=== PATIENT | male | born 1945 | race Hispanic/Latino ===

== ENCOUNTER 2022-08-19 11:58 | Observation (INO) | payer OTHER ==
--- OUTSIDE RECORDS SUMMARY | 2022-08-19 12:02 | XMS REPORT | Continuity of Care Document ---
:1945 Author Organization [facility] t Address [address] [place] [address] Care Team Providers Name Role Phone Micheal Moon MD Primary Care Physician Khurram Attending Clinician Unavailable DR ARCHIE SALAZAR Attending Clinician Unavailable LAURI PAGE Attending Clinician Unavailable Khurram Admitting Clinician Unavailable DR ARCHIE SALAZAR Admitting Clinician Unavailable Payers Payer Name Policy Type Policy Number Effective Date Expiration Date S idris [employer] (MEDICARE [id number] 2013 REPLACEMENT PPO) 00:00:00 MEDICARE B-[place]: [id number] 2008 [employer] 00:00:00 TRANSACT RX (MOVED [id number]) [id number] 2021 00:00:00 Problems Condition Condition Condition Status Onset Resolution Last Treating Co mments Source Name Details Category Date Date Treatment Clinician Date 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 8-25 Family 00:00: Practic 00 e Osteoarthr Osteoarthr Problem Active [facility] itis of itis of 8-25 Family joint of Joint of 00:00: Practi c right Right 00 e shoulder Shoulder region Region Tear of Tear of Problem Active [facility] right Right 8-25 Family rotator Rotator 00:00: Practic cuff Cuff 00 e Cellulitis Cellulitis Problem Active [facility] of upper of Upper 6-08 Family limb Limb 00:00: Practic 00 e Contact Contact Problem Active [facility] dermatitis Dermatitis 6-08 Fa richard 00:00: Practic 00 e Mixed Mixed Problem Active [facility] hyperchole Hyperchole 3-01 Fa richard sterolemia sterolemia 00:00: Pr actic and and 00 e hypertrigl Hypertrigl yceridemia yceridemia Hyperlipid Hyperlipid Problem Active [facility] emia emia 3-01 Family 00:00: Practic 00 e Hyperchole Hyperchole Problem Active 2015-04 [facility] sterolemia sterolemia 0-24 Fa richard 00:00: Practic 00 e Allergies, Adverse Reactions, Alerts Allergy Allergy Status Severity Reaction(s) Onset Inactive Treating Comm ents Source Name Type Date Date Clinician No Known DA Active [facility] Family History Family Member Diagnosis Comments Start Date Stop Date Source Natural father Alzheimer's disease [facility] Natural father Diabetes [facility] Natural mother Cancer [facility] Social History Social Habit Start Date Stop Date Quantity Comments Source Gender identity [facility] of Social 2018-12-06 2018-12-[address] function 00:00:00 00:00:00 Hospital Tobacco use and 2018-09-10 2018-09-10 Smokeless [facility] exposure 00:00:00 00:00:00 tobacco non-user Hospital Alcohol intake 2018-09-10 2018-09-10 Current drinker [facility] 00:00:00 00:00:00 of alcohol Hospital ([facility]) Alcohol Comment 2017-02-15 2017-02-15 2-[address] 00:00:00 00:00:00 WEEK PER PT Hospital Sex Assigned At [birth year] [facility] 00:00:00 00:00:00 Hospital Smoking Status Start Date Stop Date Source Unknown if ever smoked [facility] Never smoked tobacco [facility] Medications Ordered Filled Start Stop Current Ordering Indication Dosage Frequency Signature Comments Components Source Medication Medication Date Date Medication? Clinician (SIG) Name Name ROSUVASTATI Yes Take by [facility] N CALCIUM 5-[address] (ROSUVASTAT 09:51: Hospit a IN ORAL) 11 l ROSUVASTATI Yes Take by Met hodi N CALCIUM 5-[address] (ROSUVASTAT 09:51: Hospit a IN ORAL) 11 l meloxicam meloxicam meloxicam [facility] 15 mg 15 mg 15 mg Family tablet TAKE tablet TAKE tablet Practic 1 TABLET BY 1 TABLET BY TAKE 1 e MOUTH EVERY MOUTH EVERY TABLET BY DAY FOR 30 DAY FOR 30 MOUTH DAYS DAYS EVERY DAY FOR 30 DAYS mirtazapine mirtazapine No 1 Q1D [address] [facility] 15 mg 15 mg e 15 mg Family tablet Take tablet Take tablet Practic 1 tablet 1 tablet Take 1 e every day every day tablet by oral by oral every day route at route at by oral bedtime for bedtime for route at 30 days. 30 days. bedtime for 30 days. rosuvastati rosuvastati rosuvastat [facility] n 10 mg n 10 mg in 10 mg Famil y tablet TAKE tablet TAKE tablet Practic 1 TABLET BY 1 TABLET BY TAKE 1 e MOUTH EVERY MOUTH EVERY TABLET BY DAY DAY MOUTH EVERY DAY triamcinolo triamcinolo [facility] ne ne one Family acetonide acetonide acetonide Practic 0.5 % 0.5 % 0.5 % e topical topical topical cream APPLY cream APPLY cream THIN COAT THIN COAT APPLY THIN TO AFFECTED TO AFFECTED COAT TO AREA TWICE AREA TWICE AFFECTED A DAY A DAY AREA TWICE A DAY Keflex 500 Keflex 500 No 1capsul TID Keflex [address] [facility] mg capsule mg capsule e(s) mg capsule Family Take 1 Take 1 Take 1 Practic capsule 3 capsule 3 capsule 3 e times a day times a day times a by oral by oral day by route for 7 route for 7 oral route days. days. for 7 days. [facility] Family acetonide acetonide acetonide Practic 0.1 % 0.1 % 0.1 % e topical topical topical cream APPLY cream APPLY cream A THIN A THIN APPLY A LAYER TO LAYER TO THIN LAYER THE THE TO THE AFFECTED AFFECTED AFFECTED AREA(S) BY AREA(S) BY AREA(S) BY TOPICAL TOPICAL TOPICAL ROUTE 2 ROUTE 2 ROUTE 2 TIMES PER TIMES PER TIMES PER DAY X10 DAY X10 DAY X10 DAYS DAYS DAYS Bactrim DS Bactrim DS No 1 Q12H Bactrim DS [facility] 800 mg-160 800 mg-160 800 mg-160 Family mg tablet mg tablet mg tablet Practic Take 1 Take 1 Take 1 e tablet tablet tablet every 12 every 12 every 12 hours by hours by hours by oral route oral route oral route for 10 for 10 for 10 days. days. days. clotrimazol clotrimazol No clotrimazo [facility] e-betametha e-betametha le-betamet Family dieudonne Peraza hasone 1 Practic %-0.05 % %-0.05 % %-0.05 % e topical topical topical cream APPLY cream APPLY cream TO THE TO THE APPLY TO AFFECTED AFFECTED THE AND AND AFFECTED SURROUNDING SURROUNDING AND AREAS OF AREAS OF SURROUNDIN SKIN BY SKIN BY G AREAS OF TOPICAL TOPICAL SKIN BY ROUTE 2 ROUTE 2 TOPICAL TIMES PER TIMES PER ROUTE 2 DAY prn DAY prn TIMES PER rash rash DAY prn rash [facility]amcinolo [facility] acetonide acetonide acetonide Practic 0.1 % 0.1 % 0.1 % e topical topical topical cream APPLY cream APPLY cream A THIN A THIN APPLY A LAYER TO LAYER TO THIN LAYER THE THE TO THE AFFECTED AFFECTED AFFECTED AREA(S) BY AREA(S) BY AREA(S) BY TOPICAL TOPICAL TOPICAL ROUTE 2 ROUTE 2 ROUTE 2 TIMES PER TIMES PER TIMES PER DAY X10 DAY X10 DAY X10 DAYS DAYS DAYS Bactrim DS Bactrim DS No 1 Q12H Bactrim DS [facility] 800 mg-160 800 mg-160 800 mg-160 Family mg tablet mg tablet mg tablet Practic Take 1 Take 1 Take 1 e tablet tablet tablet every 12 every 12 every 12 hours by hours by hours by oral route oral route oral route for 10 for 10 for 10 days. days. days. clotrimazol [facility] e-betametha e-betametha le-betamet Family dieudonne bro 1 hasone 1 Practic %-0.05 % %-0.05 % %-0.05 % e topical topical topical cream APPLY cream APPLY cream TO THE TO THE APPLY TO AFFECTED AFFECTED THE AND AND AFFECTED SURROUNDING SURROUNDING AND AREAS OF AREAS OF SURROUNDIN SKIN BY SKIN BY G AREAS OF TOPICAL TOPICAL SKIN BY ROUTE 2 ROUTE 2 TOPICAL TIMES PER TIMES PER ROUTE 2 DAY prn DAY prn TIMES PER rash rash DAY prn rash triamcinolo triamcinolo No triamcinol [facility] one Family acetonide acetonide acetonide Practic 0.1 % 0.1 % 0.1 % e topical topical topical cream APPLY cream APPLY cream A THIN A THIN APPLY A LAYER TO LAYER TO THIN LAYER THE THE TO THE AFFECTED AFFECTED AFFECTED AREA(S) BY AREA(S) BY AREA(S) BY TOPICAL TOPICAL TOPICAL ROUTE 2 ROUTE 2 ROUTE 2 TIMES PER TIMES PER TIMES PER DAY X10 DAY X10 DAY X10 DAYS DAYS DAYS clotrimazol clotrimazol clotrimazo [facility] e-betametha e-betametha le-betamet Family sone 1 sone 1 hasone 1 Practic %-0.05 % %-0.05 % %-0.05 % e topical topical topical cream APPLY cream APPLY cream TO THE TO THE APPLY TO AFFECTED AFFECTED THE AND AND AFFECTED SURROUNDING SURROUNDING AND AREAS OF AREAS OF SURROUNDIN SKIN BY SKIN BY G AREAS OF TOPICAL TOPICAL SKIN BY ROUTE 2 ROUTE 2 TOPICAL TIMES PER TIMES PER ROUTE 2 DAY prn DAY prn TIMES PER rash rash DAY prn rash memantine memantine No memantine [facility] 10 mg 10 mg 10 mg Family tablet TAKE tablet TAKE tablet Practic 1 TABLET BY 1 TABLET BY TAKE 1 e MOUTH TWICE MOUTH TWICE TABLET BY A DAY A DAY MOUTH TWICE A DAY rosuvastati rosuvastati No rosuvastat [facility] n 10 mg n 10 mg in 10 mg Famil y tablet TAKE tablet TAKE tablet Practic 1 TABLET BY 1 TABLET BY TAKE 1 e MOUTH EVERY MOUTH EVERY TABLET BY DAY DAY MOUTH EVERY DAY triamcinolo triamcinolo No triamcinol [facility] ne ne one Family acetonide acetonide acetonide Practic 0.1 % 0.1 % 0.1 % e topical topical topical cream APPLY cream APPLY cream A THIN A THIN APPLY A LAYER TO LAYER TO THIN LAYER THE THE TO THE AFFECTED AFFECTED AFFECTED AREA(S) BY AREA(S) BY AREA(S) BY TOPICAL TOPICAL TOPICAL ROUTE 2 ROUTE 2 ROUTE 2 TIMES PER TIMES PER TIMES PER DAY X10 DAY X10 DAY X10 DAYS DAYS DAYS Immunizations Ordered Immunization Filled Immunization Date Status Commen ts Source Name Name COVID-19, mRNA, COVID-19, mRNA, 2022-02-22 Completed [facility] LNP-S, bivalent LNP-S, bivalent 00:00:00 Prac terrnece booster, PF, 30 booster, PF, 30 mcg/0.3 mL dose mcg/0.3 mL dose (Veebeam) (Veebeam) COVID-19, mRNA, COVID-19, mRNA, 2022-02-22 Completed [facility] LNP-S, bivalent LNP-S, bivalent 00:00:00 Prac terrence booster, PF, 30 booster, PF, 30 mcg/0.3 mL dose mcg/0.3 mL dose (Pfizer-BioNTech) (Zen99-BioNTech) COVID-19, mRNA, COVID-19, mRNA, 2022-02-22 Completed [facility] LNP-S, bivalent LNP-S, bivalent 00:00:[address]rence booster, PF, 30 booster, PF, 30 mcg/0.3 mL dose mcg/0.3 mL dose (Pfizer-BioNTech) (Pfizer-BioNTech) influenza, influenza, 2022-02-14 Completed [facility] unspecified unspecified 00:00:00 Practice formulation formulation influenza, influenza, 2022-02-14 Completed [facility] unspecified unspecified 00:00:00 Practice formulation formulation influenza, influenza, 2022-02-14 Completed [facility] unspecified unspecified 00:00:00 Practice formulation formulation influenza, influenza, 2022-02-14 Completed [facility] unspecified unspecified 00:00:00 Practice formulation formulation COVID-19, mRNA, COVID-19, mRNA, 2021-02-06 Completed [facility] LNP-S, PF, 30 mcg/0.3 LNP-S, PF, 30 mcg/0.3 00:00:00 Practice mL dose mL dose (Pfizer-BioNTech) (Zen99-BioNTech) COVID-19, mRNA, COVID-19, mRNA, 2021-02-06 Completed [facility] LNP-S, PF, 30 mcg/0.3 LNP-S, PF, 30 mcg/0.3 00:00:00 Practice mL dose mL dose (Pfizer-BioNTech) (Zen99-BioNTech) COVID-19, mRNA, COVID-19, mRNA, 2021-02-06 Completed [facility] LNP-S, PF, 30 mcg/0.3 LNP-S, PF, 30 mcg/0.3 00:00:00 Practice mL dose mL dose (Pfizer-BioNTech) (Zen99-BioNTech) COVID-19, mRNA, COVID-19, mRNA, 2021-02-06 Completed [facility] LNP-S, PF, 30 mcg/0.3 LNP-S, PF, 30 mcg/0.3 00:00:00 Practice mL dose mL dose (Pfizer-BioNTech) (Zen99-BioNTech) COVID-19, mRNA, COVID-19, mRNA, 2021-02-06 Completed [facility] LNP-S, PF, 30 mcg/0.3 LNP-S, PF, 30 mcg/0.3 00:00:00 Practice mL dose mL dose (Pfizer-BioNTech) (Zen99-BioNTech) Influenza vaccine, Influenza vaccine, 2021-01-[address] [facility] Family quadrivalent, quadrivalent, 00:00:00 Practice adjuvanted adjuvanted Influenza vaccine, Influenza vaccine, 2021-01-[address] [facility] Family quadrivalent, quadrivalent, 00:00:00 Practice adjuvanted adjuvanted Influenza vaccine, Influenza vaccine, 2021-01-[address] [facility] Family quadrivalent, quadrivalent, 00:00:00 Practice adjuvanted adjuvanted Influenza vaccine, Influenza vaccine, 2021-01-[address] [facility] Family quadrivalent, quadrivalent, 00:00:00 Practice adjuvanted adjuvanted Influenza vaccine, Influenza vaccine, 2021-01-[address] [facility] Family quadrivalent, quadrivalent, 00:00:00 Practice adjuvanted adjuvanted COVID-19, mRNA, COVID-19, mRNA, 2020-06-05 Completed [facility] LNP-S, PF, 30 mcg/0.3 LNP-S, PF, 30 mcg/0.3 00:00:00 Practice mL dose mL dose (Pfizer-BioNTech) (Zen99-BioNTech) COVID-19, mRNA, COVID-19, mRNA, 2020-06-05 Completed [facility] LNP-S, PF, 30 mcg/0.3 LNP-S, PF, 30 mcg/0.3 00:00:00 Practice mL dose mL dose (Pfizer-BioNTech) (Zen99-BioNTech) COVID-19, mRNA, COVID-19, mRNA, 2020-06-05 Completed [facility] LNP-S, PF, 30 mcg/0.3 LNP-S, PF, 30 mcg/0.3 00:00:00 Practice mL dose mL dose (Zen99-BioNTech) (Zen99-BioNTech) COVID-19, mRNA, COVID-19, mRNA, 2020-06-05 Completed [facility] LNP-S, PF, 30 mcg/0.3 LNP-S, PF, 30 mcg/0.3 00:00:00 Practice mL dose mL dose (Pfizer-BioNTech) (Pfizer-BioNTech) COVID-19, mRNA, COVID-19, mRNA, 2020-06-05 Completed [facility] LNP-S, PF, 30 mcg/0.3 LNP-S, PF, 30 mcg/0.3 00:00:00 Practice mL dose mL dose (Pfizer-BioNTech) (Pfizer-BioNTech) COVID-19, mRNA, COVID-19, mRNA, 2020-05-15 Completed [facility] LNP-S, PF, 30 mcg/0.3 LNP-S, PF, 30 mcg/0.3 00:00:00 Practice mL dose mL dose (Pfizer-BioNTech) (Pfizer-BioNTech) COVID-19, mRNA, COVID-19, mRNA, 2020-05-15 Completed [facility] LNP-S, PF, 30 mcg/0.3 LNP-S, PF, 30 mcg/0.3 00:00:00 Practice mL dose mL dose (Pfizer-BioNTech) (Pfizer-BioNTech) COVID-19, mRNA, COVID-19, mRNA, 2020-05-15 Completed [facility] LNP-S, PF, 30 mcg/0.3 LNP-S, PF, 30 mcg/0.3 00:00:00 Practice mL dose mL dose (Pfizer-BioNTech) (Pfizer-BioNTech) COVID-19, mRNA, COVID-19, mRNA, 2020-05-15 Completed [facility] LNP-S, PF, 30 mcg/0.3 LNP-S, PF, 30 mcg/0.3 00:00:00 Practice mL dose mL dose (Pfizer-BioNTech) (Zen99-BioNTech) COVID-19, mRNA, COVID-19, mRNA, 2020-05-15 Completed [facility] LNP-S, PF, 30 mcg/0.3 LNP-S, PF, 30 mcg/0.3 00:00:00 Practice mL dose mL dose (Pfizer-BioNTech) (Zen99-BioNTech) influenza, high-dose, influenza, high-dose, 2020-02-[address] [facility] Family quadrivalent quadrivalent 18:39:39 Practice influenza, high-dose, influenza, high-dose, 2020-02-09 Completed [facility] quadrivalent quadrivalent 18:39:39 Practice influenza, high-dose, influenza, high-dose, 2020-02-[address] [facility] Family quadrivalent quadrivalent 18:39:39 Practice influenza, high-dose, influenza, high-dose, 2020-02-09 Completed [facility] quadrivalent quadrivalent 18:39:39 Practice influenza, high-dose, influenza, high-dose, 2020-02-[address] [facility] Family quadrivalent quadrivalent 18:39:39 Practice zoster recombinant zoster recombinant 2019-12-[address] [facility] Family 11:26:59 Practice zoster recombinant zoster recombinant 2019-12-[address] [facility] Family 11:26:59 Practice zoster recombinant zoster recombinant 2019-12-[address] [facility] Family 11:26:59 Practice zoster recombinant zoster recombinant 2019-12-[address] [facility] Family 11:26:59 Practice zoster recombinant zoster recombinant 2019-12-[address] [facility] Family 11:26:59 Practice influenza, high dose influenza, high dose 2019-01-22 Completed [facility] seasonal seasonal 00:00:00 Practice influenza, high dose influenza, high dose 2019-01-22 Completed [facility] seasonal seasonal 00:00:00 Practice influenza, high dose influenza, high dose 2019-01-22 Completed [facility] seasonal seasonal 00:00:00 Practice influenza, high dose influenza, high dose 2019-01-22 Completed [facility] seasonal seasonal 00:00:00 Practice influenza, high dose influenza, high dose 2019-01-22 Completed [facility] seasonal seasonal 00:00:00 Practice pneumococcal pneumococcal 2018-05-[address] [facility] Fa richard conjugate PCV 13 conjugate PCV 13 00:00:00 Pr actice pneumococcal pneumococcal 2018-05-11 Completed [facility] richard conjugate PCV 13 conjugate PCV 13 00:00:00 Pr actice pneumococcal pneumococcal 2018-05-[address] [facility] Fa richard conjugate PCV 13 conjugate PCV 13 00:00:00 Pr actice pneumococcal pneumococcal 2018-05-[address] [facility] Fa richard conjugate PCV 13 conjugate PCV 13 00:00:00 Pr actice pneumococcal pneumococcal 2018-05-11 Completed [facility] richard conjugate PCV 13 conjugate PCV 13 00:00:00 Pr actice pneumococcal pneumococcal 2017-06-14 Completed [facility] polysaccharide PPV23 polysaccharide PPV23 10:11:00 Practice pneumococcal pneumococcal 2017-06-14 Completed [facility] Fa richard polysaccharide PPV23 polysaccharide PPV23 10:11:00 Practice pneumococcal pneumococcal 2017-06-14 Completed [facility] Fa richard polysaccharide PPV23 polysaccharide PPV23 10:11:00 Practice pneumococcal pneumococcal 2017-06-14 Completed [facility] Fa richard polysaccharide PPV23 polysaccharide PPV23 10:11:00 Practice pneumococcal pneumococcal 2017-06-[address] [facility] Fa richard polysaccharide PPV23 polysaccharide PPV23 10:11:00 Practice HPV9 HPV9 2017-06-14 Completed [facility] 00:00:00 Practice HPV9 HPV9 2017-06-14 Completed [facility] 00:00:00 Practice HPV9 HPV9 2017-06-14 Completed [facility] 00:00:00 Practice HPV9 HPV9 2017-06-14 Completed [facility] 00:00:00 Practice HPV9 HPV9 2017-06-14 Completed [facility] 00:00:00 Practice influenza, high dose influenza, high dose 2017-01-26 Completed [facility] seasonal seasonal 12:06:00 Practice influenza, high dose influenza, high dose 2017-01-26 Completed [facility] seasonal seasonal 12:06:00 Practice influenza, high dose influenza, high dose 2017-01-26 Completed [facility] seasonal seasonal 12:06:00 Practice influenza, high dose influenza, high dose 2017-01-26 Completed [facility] seasonal seasonal 12:06:00 Practice influenza, high dose influenza, high dose 2017-01-26 Completed [facility] seasonal seasonal 12:06:00 Practice influenza, high dose influenza, high dose 2017-01-12 Completed [facility] seasonal seasonal 12:21:00 Practice influenza, high dose influenza, high dose 2017-01-12 Completed [facility] seasonal seasonal 12:21:00 Practice influenza, high dose influenza, high dose 2017-01-12 Completed [facility] seasonal seasonal 12:21:00 Practice influenza, high dose influenza, high dose 2017-01-12 Completed [facility] seasonal seasonal 12:21:00 Practice influenza, high dose influenza, high dose 2017-01-12 Completed [facility] seasonal seasonal 12:21:00 Practice pneumococcal pneumococcal 2014-05-[address] [facility] Fa richard conjugate PCV 13 conjugate PCV 13 00:00:00 Pr actice pneumococcal pneumococcal 2014-05-[address] [facility] Fa richard conjugate PCV 13 conjugate PCV 13 00:00:00 Pr actice pneumococcal pneumococcal 2014-05-[address] [facility] Fa richard conjugate PCV 13 conjugate PCV 13 00:00:00 Pr actice pneumococcal pneumococcal 2014-05-[address] [facility] Amanda ramos conjugate PCV 13 conjugate PCV 13 00:00:00 Pr actice pneumococcal pneumococcal 2014-05-[address] [facility] Amanda ramos conjugate PCV 13 conjugate PCV 13 00:00:00 Pr actice Vital Signs Vital Name Observation Time Observation Value Comments Source BP Diastolic 2022-07-05 00:00:00 82 mm[Hg] [facility] Height 2022-07-05 00:00:00 69 [in_i] [facility] BMI (Body Mass 2022-07-05 00:00:00 21.4 kg/m2 [facility] BP Systolic 2022-07-05 00:00:00 124 mm[Hg] [facility] Body Weight 2022-07-05 00:00:00 145 [lb_av] [facility] BP Diastolic 2022-05-25 00:00:00 82 mm[Hg] [facility] Height 2022-05-25 00:00:00 69 [in_i] [facility] BMI (Body Mass 2022-05-25 00:00:00 21.9 kg/m2 [facility] BP Systolic 2022-05-25 00:00:00 124 mm[Hg] [facility] Body Weight 2022-05-25 00:00:00 148 [lb_av] [facility] BP Diastolic 2022-04-27 00:00:00 82 mm[Hg] [facility] Height 2022-04-27 00:00:00 69 [in_i] [facility] BMI (Body Mass 2022-04-27 00:00:00 22 kg/m2 [facility] BP Systolic 2022-04-27 00:00:00 130 mm[Hg] [facility] Body Weight 2022-04-27 00:00:00 149 [lb_av] [facility] Height 2021-10-04 15:52:00 173.99 CM Weight 2021-10-04 15:52:00 70.17 KG BP Diastolic 2021-09-20 00:00:00 68 mm[Hg] [facility] Height 2021-09-20 00:00:00 69 [in_i] [facility] BMI (Body Mass 2021-09-20 00:00:00 22.2 kg/m2 [facility] BP Systolic 2021-09-20 00:00:00 112 mm[Hg] [facility] Body Weight 2021-09-20 00:00:00 150 [lb_av] [facility] BP Diastolic 2021-07-05 00:00:00 80 mm[Hg] [facility] Height 2021-07-05 00:00:00 69 [in_i] [facility] BMI (Body Mass 2021-07-05 00:00:00 21.4 kg/m2 [facility] BP Systolic 2021-07-05 00:00:00 126 mm[Hg] [facility] Body Weight 2021-07-05 00:00:00 145 [lb_av] [facility] BP Diastolic 2021-03-29 00:00:00 80 mm[Hg] [facility] Height 2021-03-29 00:00:00 69 [in_i] [facility] BMI (Body Mass 2021-03-29 00:00:00 22.5 kg/m2 [facility] BP Systolic 2021-03-29 00:00:00 124 mm[Hg] [facility] Body Weight 2021-03-29 00:00:00 152.6 [lb_av] [facility] BP Diastolic 2021-01-04 00:00:00 82 mm[Hg] [facility] Height 2021-01-04 00:00:00 69 [in_i] [facility] BMI (Body Mass 2021-01-04 00:00:00 22.7 kg/m2 [facility] BP Systolic 2021-01-04 00:00:00 124 mm[Hg] [facility] Body Weight 2021-01-04 00:00:00 154 [lb_av] [facility] BP Diastolic 2020-02-09 00:00:00 78 mm[Hg] [facility] Height 2020-02-09 00:00:00 69 [in_i] [facility] BMI (Body Mass 2020-02-09 00:00:00 22.6 kg/m2 [facility] BP Systolic 2020-02-09 00:00:00 122 mm[Hg] [facility] Body Weight 2020-02-09 00:00:00 153 [lb_av] [facility] BP Diastolic 2019-12-26 00:00:00 76 mm[Hg] [facility] Height 2019-12-26 00:00:00 69 [in_i] [facility] BMI (Body Mass 2019-12-26 00:00:00 22.9 kg/m2 [facility] BP Systolic 2019-12-26 00:00:00 120 mm[Hg] [facility] Body Weight 2019-12-26 00:00:00 155 [lb_av] [facility] BP Diastolic 2019-12-08 00:00:00 70 mm[Hg] [facility] Height 2019-12-08 00:00:00 69 [in_i] [facility] BMI (Body Mass 2019-12-08 00:00:00 22.7 kg/m2 [facility] BP Systolic 2019-12-08 00:00:00 136 mm[Hg] [facility] Body Weight 2019-12-08 00:00:00 154 [lb_av] [facility] Height 2019-11-26 00:00:00 69 [in_i] [facility] BMI (Body Mass 2019-11-26 00:00:00 22.2 kg/m2 [facility] Body Weight 2019-11-26 00:00:00 150 [lb_av] [facility] BP Diastolic 2019-11-20 00:00:00 78 mm[Hg] [facility] Height 2019-11-20 00:00:00 69 [in_i] [facility] BMI (Body Mass 2019-11-20 00:00:00 22.4 kg/m2 [facility] BP Systolic 2019-11-20 00:00:00 130 mm[Hg] [facility] Body Weight 2019-11-20 00:00:00 152 [lb_av] [facility] BP Diastolic 2019-09-25 00:00:00 82 mm[Hg] [facility] Height 2019-09-25 00:00:00 69 [in_i] [facility] BMI (Body Mass 2019-09-25 00:00:00 22.2 kg/m2 [facility] BP Systolic 2019-09-25 00:00:00 130 mm[Hg] [facility] Body Weight 2019-09-25 00:00:00 150 [lb_av] [facility] Height 2019-09-22 00:00:00 69 [in_i] [facility] BMI (Body Mass 2019-09-22 00:00:00 22.2 kg/m2 [facility] Body Weight 2019-09-22 00:00:00 150 [lb_av] [facility] BP Diastolic 2019-07-07 00:00:00 74 mm[Hg] [facility] Height 2019-07-07 00:00:00 69 [in_i] [facility] BMI (Body Mass 2019-07-07 00:00:00 22 kg/m2 [facility] BP Systolic 2019-07-07 00:00:00 116 mm[Hg] [facility] Body Weight 2019-07-07 00:00:00 149.2 [lb_av] [facility] BP Diastolic 2019-05-22 00:00:00 80 mm[Hg] [facility] Height 2019-05-22 00:00:00 69 [in_i] [facility] BMI (Body Mass 2019-05-22 00:00:00 22.2 kg/m2 [facility] BP Systolic 2019-05-22 00:00:00 120 mm[Hg] [facility] Body Weight 2019-05-22 00:00:00 150 [lb_av] [facility] BP Diastolic 2019-03-20 00:00:00 66 mm[Hg] [facility] Height 2019-03-20 00:00:00 69 [in_i] [facility] BMI (Body Mass 2019-03-20 00:00:00 21.9 kg/m2 [facility] BP Systolic 2019-03-20 00:00:00 120 mm[Hg] [facility] Body Weight 2019-03-20 00:00:00 148.6 [lb_av] [facility] BP Diastolic 2019-02-05 00:00:00 80 mm[Hg] [facility] Height 2019-02-05 00:00:00 69 [in_i] [facility] BMI (Body Mass 2019-02-05 00:00:00 22.2 kg/m2 [facility] BP Systolic 2019-02-05 00:00:00 120 mm[Hg] [facility] Body Weight 2019-02-05 00:00:00 150 [lb_av] [facility] Practice BP Diastolic 2018-10-30 00:00:00 70 mm[Hg] [facility] Practice Height 2018-10-30 00:00:00 69 [in_i] [facility] Practice BMI (Body Mass 2018-10-30 00:00:00 22 kg/m2 [facility]) Practice BP Systolic 2018-10-30 00:00:00 118 mm[Hg] [facility] Practice Body Weight 2018-10-30 00:00:00 149 [lb_av] [facility] Practice BP Diastolic 2018-10-02 00:00:00 76 mm[Hg] [facility] Practice Height 2018-10-02 00:00:00 69 [in_i] [facility] Practice BMI (Body Mass 2018-10-02 00:00:00 22.3 kg/m2 [facility] BP Systolic 2018-10-02 00:00:00 124 mm[Hg] [facility] Body Weight 2018-10-02 00:00:00 151 [lb_av] [facility] Procedures Procedure Date / Time Performing Clinician Source Performed IMMOBILIZATION RT LOWER 2021-10-04 00:00:00 [facility] ARM SPLINT MRI, shoulder, w/o 2019-11-20 00:00:[address] [facility] Stephie amily contrast Practice nfectious agent 2019-10-10 00:00:00 [facility] detection by nucleic acid (DNA or nfectious agent 2019-09-05 00:00:00 [facility] detection by nucleic acid (DNA or MRI, shoulder, w/o 2019-08-25 00:00:[address] [facility] Stephie amily contrast Practice X-RAY OF SHOULDER 2 VIEW 2019-05-22 00:00:00 [facility] Colonoscopy 2017-02-16 00:00:00 [facility] 2016-04-16 00:00:00 [facility] Back Surgery [facility] Plan of Care Planned Activity Planned Date Details Comments Source Future Scheduled Test 2022-07-19 COVID-19 VACCINE [facility] 04:51:11 (#1) [code = COVID-19 VACCINE (#1)] Future Scheduled Test 2022-07-19 SHINGLES VACCINES [facility] 04:51:11 (1 of 2) [code = SHINGLES VACCINES (1 of 2)] Future Scheduled Test 2022-07-19 INFLUENZA VACCINE [facility] 04:51:11 [code = INFLUENZA VACCINE] Diagnostic Test 2022-07-05 lipid panel, serum [facility] leo [facility] Pending 00:00:00 [code = lipid Practice panel, serum] Diagnostic Test 2022-07-05 CMP, serum or [facility] Pending 00:00:00 plasma [code = CMP, Practice serum or plasma] Diagnostic Test 2022-07-05 TSH, serum or [facility] Pending 00:00:00 plasma [code = TSH, Practice serum or plasma] Diagnostic Test 2022-07-05 HbA1c (hemoglobin [facility] Pending 00:00:00 A1c), blood [code = Practice HbA1c (hemoglobin A1c), blood] Future Scheduled Test 2022-03-29 COVID-19 VACCINE [facility] 04:33:51 (#1) [code = COVID-19 VACCINE (#1)] Future Scheduled Test 2022-03-29 SHINGLES VACCINES [facility] 04:33:51 (1 of 2) [code = SHINGLES VACCINES (1 of 2)] Future Scheduled Test 2022-03-29 INFLUENZA VACCINE [facility] 04:33:51 [code = INFLUENZA VACCINE] Future Appointment 2023-07-06 Micheal Moon [facility] 00:00:00 [address] [facility]; Practice [address] [address] [facility] Encounters Start End Encounter Admission Attending Care Care Encounter Source Date/Time Date/Time Type Type Clinicians Facility Department ID 2022-07-26 2022-07-26 Outpatient Khurram FLEMING VF [id number] [facility] 00:00:00 00:00:00 [id number] Family Practic e 2022-07-05 2022-07-05 Micheal Martin [facility] [place] - [id number] V illage 00:00:00 00:00:00 Zuleyma Moon MD: [id number] Medical - Prac tic [place] - e [facility], _HOU_S[address], [place] [address] , Ph. 2022-07-03 2022-07-03 Outpatient Khurram FLEMINGP VFP [id number] [place] [address] 00:00:00 00:00:00 [id number] Family Practic e 2022-05-25 2022-05-25 Outpatient Reichman_A VFP VFP [id number] [place] [address] 00:00:00 00:00:00 [id number] Family Practic e 2022-05-25 2022-05-25 Outpatient VFP VFP [id number] [place] [address] 00:00:00 00:00:00 [id number] Family Practic e 2022-05-25 2022-05-25 Outpatient VFP VFP [id number] [facility] 00:00:00 00:00:00 [id number] Family Practic e 2022-05-25 2022-05-25 Outpatient VFP VFP [id number] [facility] 00:00:00 00:00:00 [id number] Family Practic e 2022-05-25 2022-05-25 Outpatient VFP VFP [id number] [facility] 00:00:00 00:00:00 [id number] Family Practic e 2022-05-25 2022-05-25 Micheal J VFP [place] - [id number] V illage 00:00:00 00:00:[address] [facility] Mitul fenton MD: [id number] Medical - Prac tic [facility], _[facility] [address] [facility], [place] [address] , Ph. 2022-05-15 2022-05-15 Outpatient Reichman_A VFP VFP [id number] [place] [address] 00:00:00 00:00:00 [id number] Family Practic e 2022-05-15 2022-05-15 Outpatient VFP VFP [id number] [place] [address] 00:00:00 00:00:00 [id number] Family Practic e 2022-05-09 2022-05-09 Outpatient Reichman_A VFP VFP [id number] [place] [address] 00:00:00 00:00:00 [id number] Family Practic e 2022-04-27 2022-04-27 Outpatient Reichman_A VFP VFP [id number] [place] [address] 00:00:00 00:00:00 [id number] Family Practic e 2022-04-27 2022-04-27 Ramashilpa VFP [place] - [id number] [address] [place] [address] 00:00:00 00:00:[address] [facility] Kashif brody MD: [id number] Medical - Prac [place]ic [place] - e [facility], _SEEMA_Luzmariaa [address], [place] [address] , Ph. 2022-04-25 2022-04-25 Outpatient Reichman_A VFP VFP [id number] [facility] 00:00:00 00:00:00 [id number] Family Practic e 2022-04-25 2022-04-25 Outpatient VFP VFP [id number] [facility] 00:00:00 00:00:00 [id number] Family Practic e 2022-04-25 2022-04-25 Outpatient VFP VFP [id number] [facility] 00:00:00 00:00:00 [id number] Family Practic e 2021-12-05 2021-12-05 Outpatient Reichman_A VFP VFP [id number] [facility] 00:00:00 00:00:00 [id number] Family Practic e 2021-10-06 2021-10-06 Outpatient Reichman_A VFP VFP [id number] [facility] 05:47:00 05:47:00 [id number] Family Practic e 2021-10-04 2021-10-04 Emergency [facility] 1001 [id number] [facility] 15:52:00 17:15:00 Medica l Center 2021-09-20 2021-09-20 Outpatient VFP VFP [id number] [facility] 11:45:00 11:45:00 [id number] Family Practic e 2021-09-20 2021-09-20 Outpatient VFP VFP [id number] [facility] 11:45:00 11:45:00 [id number] Family Practic e 2021-09-20 2021-09-20 Outpatient Reichman_A VFP VFP [id number] [facility] 00:00:00 00:00:00 [id number] Family Practic e 2021-09-20 2021-09-20 Micheal J VFP [place] - [id number] V illage 00:00:00 00:00:[address] [facility] Mitul fenton MD: [id number] Medical - Prac tic [facility]_HOU_Suga e Formerly [facility], [facility] [address], [place] [address] , Ph. 2021-07-05 2021-07-05 Outpatient Reichman_A VFP VFP [id number] [facility] 03:09:00 03:09:00 [id number] Family Practic e 2021-07-05 2021-07-05 Outpatient VFP VFP [id number] [facility] 03:09:00 03:09:00 [id number] Family Practic e 2021-07-05 2021-07-05 Outpatient VFP VFP [id number] [facility] 03:09:00 03:09:00 [id number] Family Practic e 2021-07-05 2021-07-05 Outpatient VFP VFP [id number] [facility] 03:09:00 03:09:00 [id number] Family Practic e 2021-07-05 2021-07-05 Outpatient VFP VFP [id number] [facility] 03:09:00 03:09:00 Family Practic e 2021-07-05 2021-07-05 Micheal J VFP [place] - [id number] V illage 00:00:00 00:00:[address] [facility] Mitul fenton MD: [id number] Medical - Prac tic SW DION_SEEMA_brigido [facility] [address], [place] [address] , Ph. 2021-06-27 2021-06-27 Outpatient Reichman_A VFP VFP [id number] [facility] 06:13:00 06:13:00 [id number] Family Practic e 2021-06-13 2021-06-13 Outpatient Reichman_A VFP VFP [id number] [facility] 04:27:00 04:27:00 [id number] Family Practic e 2021-06-05 2021-06-05 Outpatient Reichman_A VFP VFP [id number] [facility] 01:10:00 01:10:00 [id number] Family Practic e 2021-06-05 2021-06-05 Outpatient VFP VFP [id number] [facility] 01:10:00 01:10:00 [id number] Family Practic e 2021-04-28 2021-04-28 Outpatient Reichman_A VFP VFP [id number] [facility] 03:22:00 03:22:00 Family Practic e 2021-04-28 2021-04-28 Outpatient Reichman_A VFP VFP [id number] [facility] 03:22:00 03:22:00 Family Practic e 2021-04-20 2021-04-20 Outpatient Reichman_A VFP VFP [id number] [facility] 05:45:00 05:45:00 Family Practic e 2021-04-07 2021-04-07 Outpatient Reichman_A VFP VFP [id number] [facility] 07:36:00 07:36:00 [id number] Family Practic e 2021-03-29 2021-03-29 Outpatient Reichman_A VFP VFP [id number] [facility] 12:09:00 12:09:00 [id number] Family Practic e 2021-03-29 2021-03-29 Micheal J VFP [place] - [id number] V illage 00:00:00 00:00:[address] [facility] Mitul fenton MD: [id number] Medical - Prac tic SW _SEEMA_Rasheeda [facility] [address], [place] [address] , Ph. 2021-03-24 2021-03-24 Outpatient Reichman_A VFP VFP [id number] [facility] 02:17:00 02:17:00 [id number] Family Practic e 2021-03-24 2021-03-24 Outpatient VFP VFP [id number] [facility] 02:17:00 02:17:00 [id number] Family Practic e 2021-02-17 2021-02-17 Outpatient Reichman_A VFP VFP [id number] [facility] 02:33:00 02:33:00 [id number] Family Practic e 2021-01-13 2021-01-13 Outpatient Reichman_A VFP VFP [id number] [facility] 02:04:00 02:04:00 [id number] Family Practic e 2021-01-07 2021-01-07 Outpatient Reichman_A VFP VFP [id number] [facility] 08:05:00 08:05:00 [id number] Family Practic e 2021-01-04 2021-01-04 Outpatient Reichman_A VFP VFP [id number] [facility] 03:27:00 03:27:00 [id number] Family Practic e 2021-01-04 2021-01-04 Micheal J VFP [place] - [id number] V illage 00:00:00 00:00:[address] [facility] Kashifania jossy MD: [id number] Medical - Prac tic SW _HOU_Luzmariaa e [facility] [address], [place] [address] , Ph. 2021-01-03 2021-01-03 Outpatient Reichman_A VFP VFP [id number] [facility] 01:16:00 01:16:00 [id number] Family Practic e 2020-10-05 2020-10-05 Outpatient Reichman_A VFP VFP [id number] [facility] 03:49:00 03:49:00 [id number] Family Practic e 2020-10-05 2020-10-05 Outpatient Reichman_A VFP VFP [id number] [facility] 03:49:00 03:49:00 [id number] Family Practic e 2020-10-05 2020-10-05 Outpatient Reichman_A VFP VFP [id number] [facility] 03:49:00 03:49:00 [id number] Family Practic e 2020-03-15 2020-03-15 Outpatient Reichman_A VFP VFP [id number] [facility] 11:24:00 11:24:00 [id number] Family Practic e 2020-03-15 2020-03-15 Outpatient VFP VFP [id number] [facility] 11:24:00 11:24:00 [id number] Family Practic e 2020-02-27 2020-02-27 Outpatient Reichman_A VFP VFP [id number] [facility] 06:43:00 06:43:00 [id number] Family Practic e 2020-02-27 2020-02-27 Outpatient VFP VFP [id number] [facility] 06:43:00 06:43:00 [id number] Family Practic e 2020-02-16 2020-02-16 Outpatient Reichman_A VFP VFP [id number] [facility] 03:42:00 03:42:00 [id number] Family Practic e 2020-02-09 2020-02-09 Outpatient Reichman_A VFP VFP [id number] [facility] 05:38:00 05:38:00 [id number] Family Practic e 2020-02-09 2020-02-09 Leslie VFP [place] - [id number] [facility] 00:00:00 00:00:00 [facility], Medical - Pract aileen MD: [id number] DION_SEEMA_Suga e [facility], [facility] [address], [place] [address] , Ph. 2020-01-06 2020-01-06 Outpatient Reichman_A VFP VFP [id number] [facility] 09:33:00 09:33:00 [id number] Family Practic e 2020-01-06 2020-01-06 Outpatient VFP VFP [id number] [facility] 09:33:00 09:33:00 [id number] Family Practic e 2019-12-31 2019-12-31 Outpatient Reichman_A VFP VFP [id number] [facility] 07:08:00 07:08:00 [id number] Family Practic e 2019-12-26 2019-12-26 Outpatient Reichman_A VFP VFP [id number] [facility] 10:56:00 10:56:00 [id number] Family Practic e 2019-12-26 2019-12-26 Leslie VFP [place] - [id number] [facility] 00:00:00 00:00:00 [facility], Medical - Pract aileen MD: [id number] DION_SEEMA_Sugsydnie e [facility], [address], [place] [address] , Ph. 2019-12-11 2019-12-11 Outpatient Reichman_A VFP VFP [id number] [facility] 08:39:00 08:39:00 [id number] Family Practic e 2019-12-11 2019-12-11 Outpatient VFP VFP [id number] [facility] 08:39:00 08:39:00 [id number] Family Practic e 2019-12-08 2019-12-08 Outpatient Reichman_A VFP VFP [id number] [facility] 03:32:00 03:32:00 [id number] Family Practic e 2019-12-08 2019-12-08 Leslie VFP [place] - [id number] [facility] 00:00:00 00:00:00 [facility] Medical - Pract aileen SILVA: [id number] Lauryn bailey [facility], [address], [place] [address] , Ph. 2019-12-04 2019-12-04 Outpatient Reichman_A VFP VFP [id number] [place] [address] 06:39:00 06:39:00 [id number] Family Practic e 2019-12-03 2019-12-03 Outpatient Reichman_A VFP VFP [address] [place] [address] 11:01:00 11:01:00 [id number] Family Practic e 2019-11-26 2019-11-26 Outpatient Reichman_A VFP VFP [address] [place] [address] 10:57:00 10:57:00 [id number] Family Practic e 2019-11-26 2019-11-26 Leslie P [place] - [id number] [facility] 00:00:00 00:00:00 [facility] Medical - Pract aileen MD: [id number] Lauryn bailey [facility], [address], [place] [address] , Ph. 2019-11-20 2019-11-20 Outpatient Reichman_A VFP VFP [id number] [place] [address] 04:41:00 04:41:00 [id number] Family Practic e 2019-11-20 2019-11-20 Outpatient VFP VFP [id number] [place] [address] 04:41:00 04:41:00 [id number] Family Practic e 2019-11-20 2019-11-20 Leslie P [place] - [id number] [facility] 00:00:00 00:00:00 [facility] Medical - Pract aileen SILVA: [id number] Lauryn bailey [facility], [address], [place] [address] , Ph. 2019-10-16 2019-10-16 Outpatient Reichman_A VFP VFP [id number] [place] [address] 07:12:00 07:12:00 [id number] Family Practic e 2019-10-16 2019-10-16 Outpatient VFP VFP [id number] [facility] 07:12:00 07:12:00 [id number] Family Practic e 2019-10-10 2019-10-10 Outpatient [facility] [id number] Access 09:30:00 09:30:00 [id number] [facility] [id number] 2019-10-10 2019-10-10 Outpatient CAMILO, [facility] [id number] Access 00:00:00 00:00:00 LAURI [facility] 2019-10-10 2019-10-10 Outpatient CAMILO, [facility] [id number] Access 00:00:00 00:00:00 LAURI Alarcon [id number] [facility] [id number] 2019-09-26 2019-09-26 Outpatient Reichman_A VFP VFP [id number] [facility] 01:30:00 01:30:00 [id number] Family Practic e 2019-09-25 2019-09-25 Outpatient Reichman_A VFP VFP [id number] 05:21:00 05:21:00 [id number] Family Practic e 2019-09-25 2019-09-25 Micheal J VFP [place] - [id number] V illage 00:00:00 00:00:[address] [facility] Kashifi jossy MD: [id number] Medical - Prac tic Lauryn [address] [address] , Ph. 2019-09-22 2019-09-22 Outpatient Reichman_A VFP VFP [id number] [facility] 02:55:00 02:55:00 [id number] Family Practic e 2019-09-22 2019-09-22 Leslie VFP [place] - [id number] [facility] 00:00:00 00:00:00 [facility] - Pract aileen MD: [id number] Lauryn ba[address] [address], [place] [address] , Ph. 2019-09-11 2019-09-11 Outpatient Reichman_A VFP VFP [id number] [facility] 06:58:00 06:58:00 [id number] Family Practic e 2019-09-05 2019-09-05 Outpatient [facility] [id number] [facility] 10:30:00 10:30:00 [id number] [facility] [id number] 2019-09-05 2019-09-05 Outpatient CAMILO, [facility] [id number] Access 00:00:00 00:00:00 LAURI [facility] 2019-09-05 2019-09-05 Outpatient CAMILO, [facility] [id number] Access 00:00:00 00:00:00 LAURI Alarcon [id number] [facility] [id number] 2019-08-28 2019-08-28 Outpatient Reichman_A VFP VFP [address] [place] [address] 01:00:00 01:00:00 [id number] Family Practic e 2019-08-27 2019-08-27 Outpatient Reichman_A VFP VFP [address] [place] [address] 04:00:00 04:00:00 [id number] Family Practic e 2019-08-27 2019-08-27 Micheal J VFP [place] - [id number] V illage 00:00:00 00:00:[address] [facility] Mitul fenton MD: [id number] Medical - Prac tic DION_SEEMA_Rasheeda [address] [address] , Ph. 2019-08-26 2019-08-26 Outpatient Reichman_A VFP VFP [id number] [facility] 01:23:00 01:23:00 [id number] Family Practic e 2019-08-08 2019-08-08 Outpatient Reichman_A VFP VFP [address] [place] [address] 12:02:00 12:02:00 [id number] Family Practic e 2019-07-24 2019-07-24 Outpatient Reichman_A VFP VFP [id number] [facility] 02:02:00 02:02:00 [id number] Family Practic e 2019-07-14 2019-07-14 Outpatient Reichman_A VFP VFP [address] [place] [address] 02:03:00 02:03:00 [id number] Family Practic e 2019-07-07 2019-07-07 Outpatient Reichman_A VFP VFP [id number] [facility] 12:36:00 12:36:00 [id number] Family Practic e 2019-07-07 2019-07-07 Micheal J VFP [place] - [id number] V illage 00:00:00 00:00:[address] [facility] Mitul fenton MD: [id number] Medical - Prac tic DION_HOU_Suga leo [facility] [address], [place] [address] , Ph. 2019-07-03 2019-07-03 Outpatient Reichman_A VFP VFP [address] [place] [address] 12:30:00 12:30:00 [id number] Family Practic e 2019-05-26 2019-05-26 Outpatient Reichman_A VFP VFP [address] [place] [address] 05:42:00 05:42:00 [id number] Family Practic e 2019-05-26 2019-05-26 Outpatient Reichman_A VFP VFP [address] [place] [address] 05:42:00 05:42:00 [id number] Family Practic e 2019-05-22 2019-05-22 Outpatient Reichman_A VFP VFP [address] [place] [address] 04:55:00 04:55:00 [id number] Family Practic e 2019-05-22 2019-05-22 Micheal J VFP [place] - [id number] V illage 00:00:00 00:00:[address] [facility] Mitul fenton MD: [id number] Medical - Prac tic DION_HOU_Suga leo [facility] [address], [place] [address] , Ph. 2019-05-21 2019-05-21 Outpatient Reichman_A VFP VFP [address] [place] [address] 02:24:00 02:24:00 [id number] Family Practic e 2019-05-14 2019-05-14 Outpatient VFP VFP [id number] [facility] 05:54:00 05:54:00 [id number] Family Practic e 2019-05-12 2019-05-12 Outpatient Reichman_A VFP [facility] [id number] [facility] 12:08:00 12:08:00 [id number] Family Practic e 2019-04-07 2019-04-07 Outpatient Reichman_A VFP [facility] [id number] [facility] 12:08:00 12:08:00 [id number] Family Practic e 2019-03-20 2019-03-20 Micheal Martin [facility] [place] - [id number] V illage 00:00:00 00:00:00 RedZuleyma fernandes Mitul fenton MD: [id number] Medical - Prac tic SW VM_HOU_Suga e [facility], [facility] [address], [place] [address] , Ph. 2019-02-05 2019-02-05 Micheal Martin [facility] [place] - [id number] V illage 00:00:00 00:00:00 Zuleyma Moon MD: [id number] Family Practi c SW [address], [facility] [address], [place] [address] , Ph. 2018-10-30 2018-10-30 Micheal Martin [facility] [place] - [id number] V illage 00:00:00 00:00:00 RedZuleyma MD: [id number] Family Practi c SW [address], [facility] [address], [place] [address] , Ph. 2018-10-02 2018-10-02 Micheal Martin [facility] [place] - [id number] V illage 00:00:00 00:00:00 RedZuleyma MD: [id number] Family Practi c SW [address], [address], [place] [address] , Ph. Results Test Description Test Time Test Comments Results Result Sourc e Comments XR HAND RT 2021-10-04 COMPLETE 3 16:47:24 VIEWS*WW* [facility] : 1945 Sex: M EX AM: Right wrist series, 3 views; and right hand series, 3 viewsDictation location: E5 INDICATION: Pain status post fallCOMPARISON: None.DISCUSSION: Frontal, oblique, and lateral views of the right wrist and the right hand are submitted. Right wrist: There is a questionable nondisplaced distal radius fracture at Laura's tubercle; correlation with exam findings is suggested. Bony structures are otherwise unremarkable.Right hand: No hand fracture is identified. 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 There is a questionable nondisplaced fracture at Laura's tubercle.IMPRESSION: 1. Questionable nondisplaced distal radial fracture at Laura's tubercle. Correlation with exam findings is suggested. No hand fracture is seen.2. Osteoarthrosis of the interphalangeal joints, with a central erosive component of the fifth DIP joint.Electronically signed by: Bebo Prasad MD 10/04/2021 4:47 PM CDT XR WRIST RT 2021-10-04 COMPLETE 3 VIEWS 16:47:24 *WW* [facility] : 1945 Sex: M EX AM: Right wrist series, 3 views; and right hand series, 3 viewsDictation location: E5 INDICATION: Pain status post fallCOMPARISON: None.DISCUSSION: Frontal, oblique, and lateral views of the right wrist and the right hand are submitted. Right wrist: There is a questionable nondisplaced distal radius fracture at Laura's tubercle; correlation with exam findings is suggested. Bony structures are otherwise unremarkable.Right hand: No hand fracture is identified. 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 There is a questionable nondisplaced fracture at Laura's tubercle.IMPRESSION: 1. Questionable nondisplaced distal radial fracture at Laura's tubercle. Correlation with exam findings is suggested. No hand fracture is seen.2. Osteoarthrosis of the interphalangeal joints, with a central erosive component of the fifth DIP joint.Electronically signed by: Bebo Prasad MD 10/04/2021 4:47 PM CDT XR SHOULDER RIGHT 2021-10-04 3 VIEWS *WW* 16:43:04 [facility] : 1945 Sex: M EX AM: Right shoulder 3+ viewsLocation: [id number]: pain s/p fallCOMPARISON: None availableFINDINGS:The re is no acute fracture or dislocation.Glenohume ral joint is maintained. There is a comminuted clavicular joint arthropathy with undersurface spurring. There is sclerosis of the greater tuberosity which may indicate underlying rotator cuff tendinopathy.IMPRESSI ON:1. No acute osseous abnormality.2. Degenerative change at the glenohumeral joint with further findings suggesting rotator cuff tendinopathy.Electron ically signed by: Micheal Lucas MD 10/04/2021 4:43 PM CDT Panel Description: SARS-CoV-2 (COVID-19) RNA [Presence] in 2 04:55:00 Unspecified specimen by ZACKARY with probe detection Test Item Value Reference Range Interpretation Comme nts SARS-CoV-2, ZACKARY (test Not Detected Not Detected Testin g was performed using the code = 32987-4) gena(R) EMMA S-CoV-2 test.This test was develo ped and its performance allan racteristics determinedby [employer]. T his test has not been FDA cleare d orapproved. This test has been a uthorized by FDA under an Emerge ncy UseAuthorizatio n (EUA). This test is only authori zed for the duration oftime the declaration that circumstan nickie exist justifying lori uthorization of the emergency u se of in vitro diagnostic test s fordetection of SARS-CoV-2 viru s and/or diagnosis of COVID-19 inf ectionunder section 564(b)( 1) of the Act, 21 U.S.C. 360bbb-3 (b)(1), unlessthe authorization i s terminated or revoked sooner. When diagnostic testing is nega tive, the possibility of a falsenegative result should b e considered in the context of a patient'srecent exposures and t he presence of clinical signs and symptomsconsist ent with COVID-19. An individual w ithout symptoms of COVID-19and who is not shedding SARS-CoV-2 viru s would expect to have anegative (not detected) result in this assay.
< br/>Performed by:
[facility] ([email or web address])

[facility] Description: SARS-CoV-2 (COVID-19) RNA [Presence] in Unspecified specimen by ZACKARY with probe [id number] 04:55:00 Test Item Value Reference Range Interpretation Comments SARS-CoV-2, Not Detected Not Detected Testing was per formed using ZACKARY (test code the gena(R) SARS-CoV-2 = 77965-0) test.This test was developed and i ts performance allan racteristics determinedby [employer]. T his test has not been FDA cl eared orapproved. Thi s test has been authorized by FDA under an Emerge ncy UseAuthorizatio n (EUA). This test is on ly authorized for the duration oftime the decl aration that circumstances e xist justifying lori uthorization of the emergenc y use of in vitro diagnosti c tests fordetection of SARS-CoV-2 virus and/or di agnosis of COVID-19 infect ionunder section 564(b)( 1) of the Act, 21 U.S.C. 360bbb-3(b)(1), unlessthe authorization i s terminated or revoked soon er.When diagnostic test ing is negative, the p ossibility of a falsenegat eugene result should be consi dered in the context of a patient'srecent exposures and the presenc e of clinical signs and symptomsconsist ent with COVID-19. An in dividual without symptom s of COVID-19and who is not shedding SARS-C oV-2 virus would expect to have anegative (not detected) result in this assay.
< br/>Performe d by:
[facility] (CETWE)

[facility]
--- NOTE | 2022-08-19 12:36 | RAD REPORT ---
EXAM DESCRIPTION: CT - Head Brain Wo Cont - 08/19/2022 12:19 pm CLINICAL HISTORY: CONFUSED COMPARISON: None available TECHNIQUE: Noncontrast head CT images ad were obtained without IV contrast. Multiplanar reformats we re generated and reviewed. All CT scans are performed using dose optimization technique as appropriate and may include automated exposure control or mA/KV adjustment according to patient size. FINDINGS: No intracranial hemorrhage, mass, or edema. Midline structures are unremarkable. Normal ventricular caliber for age. Reich-white matter differentiation is preserved, without evidence of acute infarct. No abnormal extra- axial fluid collections. Mastoid air cells and visualized portions of the paranasal sinuses are clear. No acute bony findings. IMPRESSION: No evidence of an acute intracranial process.
--- NOTE | 2022-08-19 12:40 | RAD REPORT ---
EXAM DESCRIPTION: Jimbo Single View08/19/2022 12:22 pm CLINICAL HISTORY: Dizziness COMPARISON: No comparisons TECHNIQUE: Portable AP view of the chest. FINDINGS: The lungs are clear. No pneumothorax or effusion. The cardiomediastinal contours are unrem arkable. IMPRESSION: No acute cardiopulmonary process.
[2022-08-19 12:43] LABS: Absolute Lymphocytes (CBC) 1.3 K/uL (0.7-4.9); Hematocrit 34.4 % (39.6-49.0); Lymphocytes % 24.2 % (15.3-44.8); MCV 87.5 fL (80-100); MPV 7.9 fL (7.6-11.3); RBC Red Blood Cell Count 3.93 M/uL (4.33-5.43)
[2022-08-19 13:05] LABS: Albumin 3.4 g/dL (3.4-5.0); Bilirubin Direct 0.1 mg/dL (0-0.2); Bilirubin Total 0.4 mg/dL (0.2-1.0); Potassium 3.6 mEq/L (3.5-5.1)
--- NOTE | 2022-08-19 14:49 | P.HP ---
Certification for Inpatient Patient admitted to: Observation With expected LOS: <2 Midnights Patient will require the following post-hospital care: None Practitioner: I am a practitioner with admitting privileges, knowledge of patient current condition, hospital course, and medical plan of care. Services: Services provided to patient in accordance with Admission requirements found in Title 42 Section 412.3 of the Code of Federal Regulations Patient History Date of Service: 08/19/22 Reason for admission: Bradycardia History of Present Illness: Service was provided via video visit/Tele-Medicine. For that reason, no physical examination was performed. Mr. Pedro Bourne is a very pleasant 76 year old male who has a past medical history of dyslipidemia who presents to the [facility] Emergency Department with generalized fatigue and lightheadedness. He reports that, over the last 2-3 weeks, he has been experiencing progressively worsening fatigue with intermittent lighthededness/dizziness. He denies any obvious inciting or alleviating factors. He reports that, recently, he was started on memantine for "racing thoughts." He denies any history of dementia or memory issues. On review of systems, he denies any fevers, chills, headaches, syncope, numbness/tingling, chest pain, palpitations, paroxysmal nocturnal dyspn ea, orthopnea, shortness of breath, wheezing, cough, abdominal pain, nausea/vomiting, diarrhea, constipation, hematochezia, melena, dysuria, hematuria, myalgia, lower extremity edema, joint aches, or any other symptoms. He presents today for further evaluation. Upon presentation, his vital signs were notable for a heart rate in the 40s. His laboratory studies were fairly unremarkable. Troponin x 1 was 5.0. His EKG revealed sinus bradycardia without STEMI criteria. His chest x-ray revealed, "no acute cardiopulmonary process." His CT head revealed, "no evidence of an acute intracranial process." He was admitted to the General Internal Medicine Service under Dr. Benjamin for further evaluation. Allergies No Known Allergies Allergy (Unverified 08/19/22 17:00) Home medications list reviewed: Yes Home Medications: Memantine HCl 5 mg PO DAILY 08/19/22 - Past Medical/Surgical History Diabetic: No -: Dyslipidemia - Family History Family History: Reviewed- Non-Contributory - Social History Smoking Status: Never smoker Alcohol use: No CD- Drugs: No Review of Systems General: Malaise (lightheadedness, dizziness) Eyes: Unremarkable ENT: Unremarkable Respiratory: Unremarkable Cardiovascular: Unremarkable Gastrointestinal: Unremarkable Genitourinary: Unremarkable Musculoskeletal: Unremarkable Integumentary: Unremarkable Neurological: Unremarkable Lymphatics: Unremarkable Physical Examination - Vital Signs Temperature: 97.9 F Blood Pressure: 126/69 Pulse: 45 Respirations: 16 Pulse Ox (%): 100 (room air) - Physical Exam General: Alert, In no apparent distress, Oriented x3 Respiratory: Other (Appears to be breathing comfortably. Speaking in full sentences.) Cardiovascular: Other (Bradycardic rate in 40s noted on telemetry) Neurological: Normal speech, Normal affect - Studies Laboratory Data (last 24 hrs) 08/19/22 12:30: WBC 5.20, Hgb 11.8 L, Hct 34.4 L, Plt Count 189 08/19/22 12:30: Sodium 138, Potassium 3.6, BUN 16, Creatinine 1.04, Glucose 112 H, Magnesium 2.0, Total Bilirubin 0.4, AST 16, ALT 18, Alkaline Phosphatase 70 Assessment and Plan - Plan # Symptomatic Bradycardia - suspect Medication-Induced Recently started on memantine and he has subsequently developed dizziness, lightheadedness, and bradycardia. - Evaluation thus far: - EKG = sinus bradycardia, without STEMI criteria - Serial troponin: first was 5.0 - Ordered transthoracic echocardiogram - Management plan: - Admit to Medicine - Cardiology consulted and Dr. Hand spoke with Dr. Rg - recommendations appreciated - Continue telemetry - Hold memantine - If persistent bradycardia after monitoring, may need to be evaluated for pacemaker placement # Dyslipidemia - Reports noncompliance with statin prescription - Ordered lipid panel Greg Medrano M.D. Discharge Plan: Home Plan to discharge in: 24 Hours - Advance Directives Does patient have a Living Will: No Does patient have a Durable POA for Healthcare: No
--- NOTE | 2022-08-19 15:40 | EDPHYS ---
Physician Documentation [facility] Name: Pedro Bourne Age: 76 yrs Sex: Male : 1945 Arrival Date: 08/19/2022 Time: 11:58 Bed 7 Private MD: ED Physician David Hand HPI: 08/19 15:16 This 76 yrs old Male presents to ER via Wheelchair with complaints of kdr Dizziness, Weakness. 15:16 Patient is here with his daughter complaining of generalized malaise weakness confusion kdr for the past 3 weeks or so. Patient has been put on Namenda in the past but stopped taking it because he did not like the way it made him felt. Recently he started taking Namenda again. He states that his current feeling of malaise, generalized weakness and confusion started prior to returning to the medication. Patient's alert and appropriate at this time and just generally feels weak and without energy. While he complains of dizziness he has not currently dizzy. Patient has been evaluated in [place] for similar symptoms over the past 6 months to a year. Patient does not require emergent intervention. Heart rate is in the upper 40s to low 50s.. Onset: The symptoms/episode began/occurred gradually, 3 week(s) ago. Severity of symptoms: At their worst the symptoms were mild. Historical: - Allergies: 12:10 No Known Allergies; vg1 - Home Meds: 12:10 rosuvastatin oral [Active]; Namenda oral [Active]; vg1 - PMHx: 12:10 Hypercholesterolemia; vg1 - PSHx: 12:10 Back; vg1 - Immunization history:: Client reports receiving the 2nd dose of the Covid vaccine. - Social history:: Smoking status: Patient denies any tobacco usage or history of. ROS: 15:16 Constitutional: Negative for fever, chills, and weight loss, Eyes: Negative for injury, kdr pain, redness, and discharge, ENT: Negative for injury, pain, and discharge, Neck: Negative for injury, pain, and swelling, Cardiovascular: Negative for chest pain, palpitations, and edema, Respiratory: Negative for shortness of breath, cough, wheezing, and pleuritic chest pain, Abdomen/GI: Negative for abdominal pain, nausea, vomiting, diarrhea, and constipation, Back: Negative for injury and pain, : Negative for injury, bleeding, discharge, and swelling, MS/Extremity: Negative for injury and deformity, Skin: Negative for injury, rash, and discoloration, Psych: Negative for depression, anxiety, suicide ideation, homicidal ideation, and hallucinations, Allergy/Immunology: Negative for hives, rash, and allergies, Endocrine: Negative for neck swelling, polydipsia, polyuria, polyphagia, and marked weight changes, Hematologic/Lymphatic: Negative for swollen nodes, abnormal bleeding, and unusual bruising. 15:16 Neuro: Positive for dizziness, weakness, General malaise. Exam: 12:57 ECG was reviewed by the Attending Physician. kdr 15:16 Constitutional: This is a well developed, well nourished patient who is awake, alert, kdr and in no acute distress. Head/Face: Normocephalic, atraumatic. Eyes: Pupils equal round and reactive to light, extra-ocular motions intact. Lids and lashes normal. Conjunctiva and sclera are non-icteric and not injected. Cornea within normal limits. Periorbital areas with no swelling, redness, or edema. Neck: Trachea midline, no thyromegaly or masses palpated, and no cervical lymphadenopathy. Supple, full range of motion without nuchal rigidity, or vertebral point tenderness. No Meningismus. Chest/axilla: Normal chest wall appearance and motion. Nontender with no deformity. No lesions are appreciated. Cardiovascular: Regular rate and rhythm with a normal S1 and S2. No gallops, murmurs, or rubs. Normal PMI, no JVD. No pulse deficits. Respiratory: Lungs have equal breath sounds bilaterally, clear to auscultation and percussion. No rales, rhonchi or wheezes noted. No increased work of breathing, no retractions or nasal flaring. 15:16 Cardiovascular: Rate: bradycardic, actual rate is 49 bpm, Rhythm: regular, Pulses: no pulse deficits are appreciated, Heart sounds: Edema: is not appreciated. Vital Signs: 12:08 BP 132 / 75; Pulse 65; Resp 16; Temp 97.9(O); Pulse Ox 100% on R/A; Weight 65.77 kg; vg1 Height 5 ft. 8 in. ; Pain 0/10; 12:42 BP 118 / 70; Pulse 46; Resp 15; Pulse Ox 99% on R/A; hb 13:22 BP 116 / 71; Pulse 45; Resp 14; Pulse Ox 100% on R/A; hb 13:40 BP 118 / 66 Supine; Pulse 42; ll1 13:42 BP 124 / 67 Sitting; Pulse 45; ll1 13:44 BP 115 / 69 Standing; Pulse 51; ll1 14:08 BP 126 / 69; Pulse 45; ll1 15:42 BP 138 / 78; Pulse 51; Resp 17; Pulse Ox 97% on R/A; hb 16:21 BP 133 / 77; Pulse 46; Resp 17; Pulse Ox 99% on R/A; hb 17:14 BP 137 / 74; Pulse 53; Resp 18; Pulse Ox 100% on R/A; Pain 0/10; ll1 12:08 Body Mass Index 22.05 (65.77 kg, 172.72 cm) vg1 12:08 Pain Scale: Adult vg1 17:14 Pain Scale: Adult ll1 MDM: 15:16 Data reviewed: vital signs, nurses notes, lab test result(s), radiologic studies. kdr 15:39 Patient medically screened. [facility] 05 12:05 Order name: Basic Metabolic Panel; Complete Time: 13:36 [facility] 08/19 12:05 Order name: CBC with Diff; Complete Time: 12:57 [facility] 08/19 12:05 Order name: LFT's; Complete Time: 13:36 [facility] 08/19 12:05 Order name: Magnesium; Complete Time: 13:36 [facility] 08/19 12:05 Order name: NT PRO-BNP; Complete Time: 13:36 [facility] 08/19 12:05 Order name: Troponin HS; Complete Time: 13:36 [facility] 08/19 12:05 Order name: XRAY Chest (1 view); Complete Time: 12:57 [facility] 08/19 12:06 Order name: CT Head Brain wo Cont; Complete Time: 12:43 [facility] 08/19 12:05 Order name: EKG; Complete Time: 12:06 [facility] 08/19 12:05 Order name: Cardiac monitoring; Complete Time: 12:42 [facility] 08/19 12:05 Order name: EKG - Nurse/Tech; Complete Time: 12:42 [facility] 08/19 12:05 Order name: IV Saline Lock; Complete Time: 12:42 [facility] 08/19 12:05 Order name: Labs collected and sent; Complete Time: 12:42 kdr 08/19 12:05 Order name: O2 Per Protocol; Complete Time: 12:42 kdr 08/19 12:05 Order name: O2 Sat Monitoring; Complete Time: 12:42 kdr 08/19 13:35 Order name: Orthostatic Blood Pressure; Complete Time: 13:48 kdr EC:57 Rate is 48 beats/min. Rhythm is regular, Sinus bradycardia with No ectopy. QRS [place] is kdr Normal. [place] interval is normal. QRS interval is normal. Clinical impression: NSR w/ Non-specific ST/T Changes and Sinus bradycardia. Administered Medications: No medications were administered Disposition Summary: 08/19/22 15:39 Hospitalization Ordered Hospitalization Status: Inpatient Admission kdr Provider: Greg Medrano Location: Telemetry/MedSurg (Inpatient) kdr Condition: Fair kdr Problem: new kdr Symptoms: are unchanged kdr Bed/Room Type: Standard kdr Room Assignment: 221(08/19/22 17:11) Diagnosis - Weakness and dizziness kdr - Bradycardia, unspecified - (39) kdr Forms: - Medication Reconciliation Form kdr - SBAR form kdr Signatures: Dispatcher [employer] EDTanja Carey RN RN dw David Hand MD MD kdr Sheila Ricks RN RN vg1 Corrections: (The following items were deleted from the chart) 12:11 12:10 PSHx: None; vg1 vg1 17:11 15:39 kdr dw
--- NOTE | 2022-08-19 15:40 | ER ---
Nurse's Notes [facility] Name: Pedro Bourne Age: 76 yrs Sex: Male : 1945 Arrival Date: 08/19/2022 Time: 11:58 Bed 7 Private MD: Diagnosis: Weakness and dizziness;Bradycardia, unspecified-(39) Presentation: 08/19 12:08 Chief complaint: Patient states: feeling weak and dizziness x 1 week; stated "room vg1 feels like its spinning sometimes" daughter stated "hes been stumbling at times too" Pt denies h/a at this time. Daughter stated pt has recently started a new medication called NAMENDA. Coronavirus screen: Vaccine status: Patient reports receiving the 2nd dose of the covid vaccine. Client denies travel out of the [place] in the last 14 days. Ebola Screen: Patient negative for fever greater than or equal to 101.5 degrees Fahrenheit, and additional compatible Ebola Virus Disease symptoms Patient denies exposure to infectious person. Patient denies travel to an Ebola-affected area in the 21 days before illness onset. Initial Sepsis Screen: Does the patient meet any 2 criteria? No. Patient's initial sepsis screen is negative. Does the patient have a suspected source of infection? No. Patient's initial sepsis screen is negative. Risk Assessment: Do you want to hurt yourself or someone else? Patient reports no desire to harm self or others. Onset of symptoms was August 12, 2022. 12:08 Method Of Arrival: Wheelchair vg1 12:08 Acuity: CHANDNI 3 vg1 Triage Assessment: 12:10 General: Appears uncomfortable, Behavior is cooperative. Pain: Denies pain. Neuro: vg1 Level of Consciousness is awake, alert, obeys commands, Oriented to person, place, time, situation. Neuro: Glass Bead Maker are equal bilaterally Moves all extremities. Gait is steady, shuffling, Speech is normal, Facial symmetry appears normal. Cardiovascular: Patient's skin is warm and dry. Historical: - Allergies: 12:10 No Known Allergies; vg1 - Home Meds: 12:10 rosuvastatin oral [Active]; Namenda oral [Active]; vg1 - PMHx: 12:10 Hypercholesterolemia; vg1 - PSHx: 12:10 Back; vg1 - Immunization history:: Client reports receiving the 2nd dose of the Covid vaccine. - Social history:: Smoking status: Patient denies any tobacco usage or history of. Screenin:43 [facility] ED Fall Risk Assessment (Adult) Confusion or Disorientation Yes (5 pts) ll1 Intoxicated or Sedated Yes (3 pts) Impaired Gait Yes (1 pt) Mobility Assist Device Used Yes (1 pt) Score/Fall Risk Level 3 or more points = High Risk Oriented to surroundings, Maintained a safe environment, Educated pt \\T\\ family on fall prevention, incl call for assistance when getting out of bed, Hourly rounding (assess needs \\T\\ fall precautionary measures) done, Offered frequent toileting (1:1 observation), Utilized family, sitter, or virtual greeting card editor as indicated. Abuse screen: Denies threats or abuse. Nutritional screening: No deficits noted. Tuberculosis screening: No symptoms or risk factors identified. Assessment: 12:30 Reassessment: No changes from previously documented assessment. Dr Hand at . ll1 12:43 Reassessment: No changes from previously documented assessment. Patient and/or family ll1 updated on plan of care and expected duration. Pain level reassessed. Patient is alert, oriented x 3, equal unlabored respirations, skin warm/dry/pink. 13:22 Reassessment: Patient appears in no apparent distress at this time. No changes from hb previously documented assessment. Patient and/or family updated on plan of care and expected duration. Pain level reassessed. 13:47 Reassessment: No changes from previously documented assessment. Patient and/or family ll1 updated on plan of care and expected duration. Pain level reassessed. Patient is alert, oriented x 3, equal unlabored respirations, skin warm/dry/pink. 14:08 Reassessment: No changes from previously documented assessment. HR 60 after walking ll1 down hallway and back. Tolerated well. 14:22 Reassessment: No changes from previously documented assessment. Patient and/or family ll1 updated on plan of care and expected duration. Pain level reassessed. Patient is alert, oriented x 3, equal unlabored respirations, skin warm/dry/pink. 15:42 Reassessment: Patient appears in no apparent distress at this time. Patient and/or hb family updated on plan of care and expected duration. Pain level reassessed. Patient is alert, oriented x 3, equal unlabored respirations, skin warm/dry/pink. 16:21 Reassessment: Patient appears in no apparent distress at this time. Patient and/or hb family updated on plan of care and expected duration. Pain level reassessed. Patient is alert, oriented x 3, equal unlabored respirations, skin warm/dry/pink. 17:15 Reassessment: No changes from previously documented assessment. Patient and/or family ll1 updated on plan of care and expected duration. Pain level reassessed. Patient is alert, oriented x 3, equal unlabored respirations, skin warm/dry/pink. Vital Signs: 12:08 BP 132 / 75; Pulse 65; Resp 16; Temp 97.9(O); Pulse Ox 100% on R/A; Weight 65.77 kg; vg1 Height 5 ft. 8 in. ; Pain 0/10; 12:42 BP 118 / 70; Pulse 46; Resp 15; Pulse Ox 99% on R/A; hb 13:22 BP 116 / 71; Pulse 45; Resp 14; Pulse Ox 100% on R/A; hb 13:40 BP 118 / 66 Supine; Pulse 42; ll1 13:42 BP 124 / 67 Sitting; Pulse 45; ll1 13:44 BP 115 / 69 Standing; Pulse 51; ll1 14:08 BP 126 / 69; Pulse 45; ll1 15:42 BP 138 / 78; Pulse 51; Resp 17; Pulse Ox 97% on R/A; hb 16:21 BP 133 / 77; Pulse 46; Resp 17; Pulse Ox 99% on R/A; hb 17:14 BP 137 / 74; Pulse 53; Resp 18; Pulse Ox 100% on R/A; Pain 0/10; ll1 12:08 Body Mass Index 22.05 (65.77 kg, 172.72 cm) vg1 12:08 Pain Scale: Adult vg1 17:14 Pain Scale: Adult ll1 ED Course: 12:00 Patient arrived in ED. rg4 12:04 David Hand MD is Attending Physician. kdr 12:10 Triage completed. vg1 12:10 Arm band placed on. vg1 12:21 CT Head Brain wo Cont In Process Unspecified. EDMS 12:22 CT completed. Patient tolerated procedure well. Patient moved to radiology via bq wheelchair. 12:23 XRAY Chest (1 view) In Process Unspecified. EDMS 12:43 Anthony Bojorquez, RN is Primary Nurse. ll1 12:45 Patient has correct armband on for positive identification. Bed in low position. Call ll1 light in reach. Side rails up X 1. Client placed on continuous cardiac and pulse oximetry monitoring. NIBP monitoring applied. nurse monitoring on. 12:45 Inserted saline lock: 22 gauge in right forearm, using aseptic technique. Blood ll1 collected. 15:38 Greg Medarno MD is Hospitalizing Provider. kdr 17:20 No provider procedures requiring assistance completed. Patient admitted, IV remains in ll1 place. Administered Medications: No medications were administered Medication: 12:46 VIS not applicable for this client. ll1 Outcome: 15:39 Decision to Hospitalize by Provider. kdr 17:21 Admitted to Tele accompanied by tech, via wheelchair, room Room 221. ll1 17:21 Condition: stable 17:21 Instructed on the need for admit. 17:34 Patient left the ED. ll1 Signatures: Dispatcher [employer] EDMS David Hand MD MD [facility] Oriana Moran Heather, RN RN Louann Ricks rg4 Sheila Ricks, RN RN vg1 Anthony Bojorquez, RN RN ll1 Corrections: (The following items were deleted from the chart) 12:11 12:10 PSHx: None; vg1 vg1 12:12 12:08 Chief complaint: Patient states: feeling weak and dizziness x 1 week; stated vg1 "room feels like its spinning sometimes" daughter stated "hes been stumbling at times too" Pt denies h/a at this time vg1
[2022-08-19 17:56] VITALS: BMI 21.9
[2022-08-20 06:15] LABS: Absolute Lymphocytes (CBC) 1.7 K/uL (0.7-4.9); Hematocrit 33.6 % (39.6-49.0); Lymphocytes % 28.3 % (15.3-44.8); MCV 87.2 fL (80-100); MPV 8.3 fL (7.6-11.3); RBC Red Blood Cell Count 3.86 M/uL (4.33-5.43)
[2022-08-20 06:34] LABS: Magnesium 2.1 mg/dL (1.6-2.4); Phosphorus 2.7 mg/dL (2.5-4.9); Potassium 3.6 mEq/L (3.5-5.1)
[2022-08-20] MEDS ORDERED: ENOXAPARIN 40 MG/0.4 ML SQ SCH (09:00)
[2022-08-20 11:28] LABS: Thyroid Stimulating Hormone 1.68 uIU/mL (0.358-3.740)
[2022-08-20 12:34] VITALS: O2SAT 99
[2022-08-20 13:53] VITALS: BP 130/64; TEMP 97.4
--- NOTE | 2022-08-21 12:29 | CON ---
Date of Consultation: 08/20/[address] Benjamin on 08/19/2022. I saw the patient on 08/20/2022. Reason For Consultation: Bradycardia. History Of Present Illness: The patient is 76. No previous cardiac history. Has a history of demen tia, hyperlipidemia. He takes Namenda and Crestor. Comes in with weakness and dizziness over the la st few weeks. Was found to have a heart rate in the 40s and 50s and was admitted for further workup. Denied any syncope. Denied any nausea, vomiting, diaphoresis, PND, orthopnea, pedal edema. He den ied any palpitation. He is just weak and dizzy. Past Medical History: As stated above. Allergies: NONE. Review of Systems: Negative. Social History: Negative. Family History: Negative. Medications: Listed earlier. Physical Examination: Vital Signs: Heart rate was in the 50s, sinus. HEENT: Negative. Neck: Supple with no bruit. Chest: Clear. Cardiac: Revealed a regular rhythm and rate with S4 gallops. Abdomen: Benign. Extremities: Revealed no clubbing, cyanosis, or edema. Diagnostic Data: EKG showed sinus salome. CT of the head was negative. Chest x-ray was negative. L aboratories were negative. Impression And Plan: 1.Symptomatic bradycardia, sinus bradycardia. 2.Dyslipidemia. 3.Dementia. Negative workup so far. The patient needs an outpatient echocardiogram, Lexiscan, and event monitor after which we will send him for a pacemaker. He does not have any syncope and the pac emaker is not an emergency at this point. Case was discussed with Dr. Benjamin. His blood pressure is w ell controlled. His dementia is well controlled. NB/MODL Voice ID: [id number] Report ID: [id number]
== END 2022-08-20 13:21 | disposition home or self-care (01) ==
LOC: ER 11:58 → ERHOLD 16:37 → 2ND 17:22
PROVIDERS: ADMIT Internal Medicine; ATTEND Hospitalist
DX: R00.1 Bradycardia, unspecified (principal); E78.5 Hyperlipidemia, unspecified; E78.00 Pure hypercholesterolemia, unspecified
CPT/HCPCS: 85025 ×2; 80048 ×2; 36415; 83735 ×2; 84100; 80061; 80076; 84443; 84484 ×3; 84439; 82607; 83540; 83880; 70450; 71045; 99285; J1650; G0378

== ENCOUNTER 2024-04-04 13:06 | Emergency (ER) | payer OTHER ==
--- NOTE | 2024-04-04 14:08 | RAD REPORT ---
EXAMINATION: ONE VIEW CHEST XR CLINICAL INDICATION: Male, 78 years old.,dizziness TECHNIQUE: Frontal chest projection is submitted. Examination is limited by patient positioning and t echnique. COMPARISON: 08/19/2022 FINDINGS: The lungs are well inflated and clear. No pneumothorax or sizable effusion. The heart is normal in s ize. Mediastinal contours are unremarkable. IMPRESSION: No acute intrathoracic abnormalities.
[2024-04-04] MEDS ORDERED: MECLIZINE HCL 12.5 MG TAB ONE (14:18)
[2024-04-04] MEDS ORDERED: ONDANSETRON 4 MG/2 ML VIAL ONE (14:18)
[2024-04-04] MEDS ORDERED: NA CHLORIDE 0.9% 500 ML ONE (14:19)
[2024-04-04 14:26] LABS: Absolute Eosinophils 0.1 K/uL (0-0.5); Absolute Lymphocytes (CBC) 1.4 K/uL (0.7-4.9); Absolute Monocytes 0.4 K/uL (0.1-1.3); Absolute Neutrophil 3.6 K/uL (1.8-8.0); Basophils % 0.6 % (0-1.3); Eosinophils % 2.4 % (0-4.4); Hematocrit 36.6 % (39.6-49.0); Hemoglobin 12.4 g/dL (13.6-17.9); Lymphocytes % 24.6 % (15.3-44.8); MCH 30.6 pg (27.0-35.0); MCHC 33.8 g/dL (32.0-36.0); MCV 90.5 fL (80-100); MPV 8.1 fL (7.6-11.3); Monocytes % 7.5 % (3.3-12.3); Neutrophils % 64.9 % (41.7-73.7); Platelets 177 thou/uL (152-406); RBC Red Blood Cell Count 4.04 M/uL (4.33-5.43)
[2024-04-04 14:30] LABS: PT Prothrombin Time 11.9 SECONDS (9.4-12.5); Protime INR 1.06
[2024-04-04 14:31] LABS: Specific Gravity 1.018 (1.005-1.030); Sqamous Epithelial None Seen /HPF (None Seen); Urine Bacteria None Seen /HPF (<20); Urine Bilirubin NEGATIVE (Negative); Urine Blood Negative (Negative); Urine Clarity Clear (Clear); Urine Color Light-Yellow (Yellow); Urine Culture Reflex Order NOT NEEDED; Urine Glucose NEGATIVE (Negative); Urine Ketones NEGATIVE (Negative); Urine Micro Reflex YN NO BILL MICROSCOPIC; Urine Mucus Slight /HPF (None Seen); Urine Nitrite NEGATIVE (Negative); Urine Protein NEGATIVE (Negative); Urine RBC <5 /HPF (None Seen); Urine Urobilinogen Normal (Normal); Urine WBC <5 /HPF (<5)
--- NOTE | 2024-04-04 14:33 | RAD REPORT ---
EXAM: CT Head Brain Wo Cont HISTORY: Dizziness;Headache COMPARISON: 08/19/2022 TECHNIQUE: Multiple contiguous axial images were obtained for a CT of the brain without contrast. Sag ittal and coronal reformats were performed. One or more of the following dose reduction techniques were used: Automated exposure control, adjus tment of the mA and kV according to patient size, and iterative reconstruction. Unless otherwise specified, incidental findings do not require dedicated imaging follow-up. FINDINGS: No evidence of hydrocephalus, intracranial hemorrhage, or extra-axial fluid collection. Mild brain atrophy with mild periventricular and deep white matter chronic microvascular ischemic ch anges, stable. The calvarium is intact. The visualized paranasal sinuses and mastoid air cells are essentially clear . IMPRESSION: No evidence of acute intracranial abnormality.
[2024-04-04 14:42] LABS: Albumin 3.2 g/dL (3.4-5.0); Albumin/Globulin Ratio 0.9 (1.1-1.8); Anion Gap 7.1 mEq/L (5.0-15.0); Bilirubin Direct 0.2 mg/dL (0-0.2); Bilirubin Indirect, Calculated 0.5 mg/dL (0.2-0.8); Bilirubin Total 0.7 mg/dL (0.2-1.0); Globulin 3.6 g/dL (2.3-3.5); Magnesium 2.1 mg/dL (1.6-2.4); Potassium 4.1 mEq/L (3.5-5.1); Protein, Total 6.8 g/dL (6.4-8.2)
--- NOTE | 2024-04-04 16:06 | RAD REPORT ---
EXAMINATION: MRI BRAIN WITHOUT CONTRAST CLINICAL INDICATION: Male, 78 years old.[facility] MAIN N DIZZINESS Bed Name: 18 TECHNIQUE: Multiplanar multisequence MR images of the brain were obtained without intravenous contras t. Unless otherwise specified, incidental findings do not require dedicated imaging follow-up. COMPARISON: No prior exam. FINDINGS: INTRACRANIAL: Midline structures are unremarkable. Diffusion-weighted images show no acute or early subacute infarction. There is mild brain atrophy with mildT2/FLAIR hyperintensities in the periventricular and deep white matter regions, likely representing chronic microvascular ischemic allan nges. There is no mass effect or midline shift. No abnormal extraaxial fluid collection. VASCULATURE: Normal signal voids in the larger intracranial arteries and dural venous sinuses. SINUSES: The paranasal sinuses and mastoid air cells are predominantly clear. BONE: The marrow signal pattern is within normal limits. IMPRESSION: No significant intracranial abnormalities.
--- NOTE | 2024-04-04 16:43 | ER ---
Nurse's Notes [facility] Name: Pedro Bourne Age: 78 yrs Sex: Male : 1945 Arrival Date: 04/04/2024 Time: 13:06 Bed 18 Private MD: Diagnosis: Bradycardia, unspecified;Dizziness and giddiness;Syncope Near Presentation: 04/04 13:08 Chief complaint: EMS states: toned out for lift assist. Family couldn't get patient to [facility] [place]. c/o dizziness. Stood w/EMS and had an ataxic gait. Vitals WNL with the exception of HR that was 45-50 (patients baseline). A\T\Ox4 w/hx of dementia. Coronavirus screen: Vaccine status: Patient reports receiving the 2nd dose of the covid vaccine. Ebola Screen: No symptoms or risks identified at this time. 13:08 Method Of Arrival: EMS: [place] [id number] 13:14 Initial Sepsis Screen: Does the patient meet any 2 criteria? No. Patient's initial ut1 sepsis screen is negative. Does the patient have a suspected source of infection? No. Patient's initial sepsis screen is negative. Risk Assessment: Do you want to hurt yourself or someone else? Patient reports no desire to harm self or others. Onset of symptoms was April 04, 2024 at 07:00. 13:14 Acuity: CHANDNI 3 ut1 Triage Assessment: 13:16 General: Appears uncomfortable, well groomed, well developed, well nourished, Behavior me1 is calm, cooperative, appropriate for age, Reports dizziness since he woke up this morning. Pain: Denies pain. EENT: No signs and/or symptoms were reported regarding the EENT system. Neuro: Level of Consciousness is awake, alert, obeys commands, Oriented to person, place, situation, Fur Scraper are equal bilaterally Moves all extremities. Full function Gait is unsteady, ataxic, Speech is slurred, baseline per daughters. Facial symmetry appears normal, Pupils are PERRLA, Intact. Neuro: Reports dizziness, since waking up. Cardiovascular: Respiratory: Airway is patent Trachea midline Respiratory effort is even, unlabored, Respiratory pattern is regular, symmetrical. GI: No signs and/or symptoms were reported involving the gastrointestinal system. : No signs and/or symptoms were reported regarding the genitourinary system. Derm: Skin is intact, is healthy with good turgor, Skin is pink, warm \T\ dry. Musculoskeletal: Reports unsteady gait due to dizziness. Historical: - Allergies: 13:16 No Known Allergies; me1 - PMHx: 13:16 Hypercholesterolemia; me1 17:58 Dementia; me1 - PSHx: 13:16 back; me1 - Immunization history:: Adult Immunizations up to date. - Infectious Disease History:: Denies. - Social history:: Smoking status: Patient denies any tobacco usage or history of. Screenin:08 [facility] ED Fall Risk Assessment (Adult) History of falling in the last 3 months, me1 including since admission No falls in past 3 months (0 pts) Confusion or Disorientation Yes (5 pts) Intoxicated or Sedated No (0 pts) Impaired Gait Yes (1 pt) Mobility Assist Device Used No (0 pt) Altered Elimination No (0 pt) Score/Fall Risk Level 0 - 2 = Low Risk Maintained a safe environment, Provided non-skid footwear, Hourly rounding (assess needs \T\ fall precautionary measures) done. Abuse screen: Denies threats or abuse. Nutritional screening: No deficits noted. Tuberculosis screening: No symptoms or risk factors identified. Assessment: 13:18 General: See triage assessment.. me1 15:42 Reassessment: Assisted patient to ambulate to the bathroom. Very unsteady gait me1 w/continued c/o dizziness. Vital Signs: 13:14 BP 154 / 75; Pulse 48; Resp 18; Temp 97.9; Pulse Ox 100% ; Weight 62.14 kg; Height 5 me1 ft. 9 in. ; 14:15 BP 132 / 77; Pulse 46; Resp 16; Pulse Ox 97% ; me1 15:00 BP 127 / 77; Pulse 43; Resp 16; Pulse Ox 97% ; me1 16:00 BP 124 / 99; Pulse 50; Resp 16; Pulse Ox 100% ; me1 17:00 BP 132 / 73; Pulse 45; Resp 15; Pulse Ox 98% ; me1 17:55 BP 134 / 76; Pulse 54; Resp 14; Pulse Ox 98% ; me1 13:14 Body Mass Index 20.23 (62.14 kg, 175.26 cm) me1 NIH Stroke Scale Scores: 13:38 NIHSS Score: 0 cp ED Course: 13:08 Patient arrived in ED. me1 13:08 Patient has correct armband on for positive identification. Bed in low position. Call me1 light in reach. Side rails up X2. Provided Education on: POC. Verbalized understanding.. Client placed on continuous cardiac and pulse oximetry monitoring. NIBP monitoring applied. hall monitor on. Pulse ox on. NIBP on. 13:08 No provider procedures requiring assistance completed. me1 13:14 Johnson Muñiz PA is PHCP. cp 13:14 Natalya Bateman MD is Attending Physician. cp 13:15 Triage completed. me1 13:16 Arm band placed on Patient placed in an exam room. me1 13:39 Domitila Grewal, TEN is Primary Nurse. me1 13:53 XRAY Chest (1 view) In Process Unspecified. EDMS 14:03 CT Head Brain wo Cont In Process Unspecified. EDMS 14:16 Basic Metabolic Panel Sent. me1 14:16 CBC with Diff Sent. me1 14:16 LFT's Sent. me1 14:16 Magnesium Sent. me1 14:16 PT-INR Sent. me1 14:16 Troponin HS Sent. me1 14:16 Initial lab(s) drawn, by ut, sent to lab. Urine collected: clean catch specimen, me1 cloudy. Inserted saline lock: 22 gauge in right antecubital area, using aseptic technique. 14:47 MRI - Brain Wo Cont In Process Unspecified. EDMS 16:41 Nasrin Dalton is Hospitalizing Provider. cp 18:34 Trae Anderson MD is Referral Physician. cp 18:49 IV discontinued, intact, bleeding controlled, No redness/swelling at site. Pressure me1 dressing applied. Administered Medications: 14:23 Drug: Ondansetron IVP 4 mg IVP once; over 2 minutes Route: IVP; Site: right antecubital;me1 15:07 Follow up: Response: No adverse reaction; Nausea is decreased me1 14:23 Drug: NS 0.9% IV 500 ml 500 ml IV at 1 bolus once; to be given as a bolus over 30 me1 minutes Volume: 500 ml; Route: IV; Rate: 1 bolus; Site: left antecubital; 18:50 Follow up: Response: No adverse reaction; IV Status: Completed infusion; IV Intake: me1 500ml 14:24 Drug: Meclizine PO 25 mg PO once Route: PO; me1 15:07 Follow up: Response: No adverse reaction me1 Medication: 17:53 VIS not applicable for this client. me1 Intake: 18:50 IV: 500ml; Total: 500ml. me1 Outcome: 16:42 Decision to Hospitalize by Provider. cp 18:35 Discharge ordered by MD. cp 18:49 Discharged to home ambulatory, with family, me1 18:49 Condition: stable 18:49 Discharge instructions given to patient, family, Instructed on discharge instructions, follow up and referral plans. Demonstrated understanding of instructions, follow-up care, Prescriptions given X 1, 18:50 Patient left the ED. me1 NIH Stroke Scale - NIH Stroke Score Date: 04/04/2024 Time: 13:38 Total Score = 0 10. Dysarthria (speech clarity - read or repeat words) - 0(Normal) 11. Extinction and Inattention (visual/tactile/auditory/spatial/personal) - 0(No abnormality) 1a. Level of Consciousness (LOC) - 0(Alert) 1b. Level of Consciousness (LOC) (Month \T\ Age) - 0(Both) 1c. LOC Commands (Open \T\ Closes Eyes/Oracle Apex Developer) - 0(Both) 2. Best Gaze (Lateral Gaze Paresis) - 0(Normal) 3. Visual Field Loss - 0(No visual loss) 4. Facial Palsy - 0(Normal) 5a. Left Arm: Motor (10-second hold) - 0(No drift) 5b. Right Arm: Motor (10-second hold) - 0(No drift) 6a. Left Leg: Motor (5-second hold - always test supine) - 0(No drift) 6b. Right Leg: Motor (5-second hold - always test supine) - 0(No drift) 7. Limb Ataxia (finger/nose \T\ heel/mann - test with eyes open) - 0(Absent) 8. Sensory Loss (pinprick arms/legs/face) - 0(Normal) 9. Best Language: Aphasia (description/naming/reading) - 0(No aphasia) Initials: cp Signatures: Dispatcher [employer] EDJohnson Isbell PA PA cp Eddleman, Michelle, RN RN me1 Corrections: (The following items were deleted from the chart) 14:16 14:15 Urinalysis W/Microscopic+U.LAB.RESHMA drawn and sent. me1 EDMS
--- NOTE | 2024-04-04 16:43 | EDPHYS ---
Physician Documentation [facility] Name: Pedro Bourne Age: 78 yrs Sex: Male : 1945 Arrival Date: 04/04/2024 Time: 13:06 Bed 18 Private MD: ED Physician Natalya Bateman HPI: 04/04 13:30 This 78 yrs old Male presents to ER via EMS with complaints of Dizziness. cp 13:30 The patient presents with dizziness, lightheadedness, near syncope. Onset: The cp symptoms/episode began/occurred for past several months. Severity of symptoms: in the emergency department the symptoms are unchanged despite home interventions. Patient's baseline: Neuro: alert and fully oriented, Motor: no deficits, Ambulation: walks with assist only, uses cane, Speech: normal. 13:30 Associated signs and symptoms: Pertinent positives: blurred vision, headache, Pertinent cp negatives: chest pain, combativeness, confusion, diaphoresis, focal weakness, head injury, numbness, palpitations, vomiting. Historical: - Allergies: 13:16 No Known Allergies; me1 - PMHx: 13:16 Hypercholesterolemia; me1 17:58 Dementia; me1 - PSHx: 13:16 back; me1 - Immunization history:: Adult Immunizations up to date. - Infectious Disease History:: Denies. - Social history:: Smoking status: Patient denies any tobacco usage or history of. ROS: 13:34 Constitutional: Negative for chills, fever, poor PO intake, cp 13:34 Cardiovascular: Negative for chest pain, edema, palpitations, 13:34 Respiratory: Negative for cough, shortness of breath, wheezing, 13:34 Abdomen/GI: Negative for abdominal pain, vomiting, diarrhea, constipation, 13:34 : Negative for urinary symptoms, 13:34 Neuro: Positive for dizziness, headache, near syncope, Negative for altered mental status, weakness, Exam: 13:35 Head/Face: Normocephalic, atraumatic. cp 13:35 Constitutional: The patient appears in no acute distress, alert, awake, non-diaphoretic, non-toxic, well developed, well nourished, 13:35 Eyes: Periorbital structures: appear normal, Pupils: equal, round, and reactive to cp light and accomodation, Extraocular movements: intact throughout, Conjunctiva: normal, no exudate, no injection, Sclera: no appreciated abnormality, Lids and lashes: appear normal, bilaterally, 13:35 ENT: External ear(s): are unremarkable, Nose: is normal, Mouth: Lips: moist, Oral mucosa: moist, Posterior pharynx: Airway: no evidence of obstruction, patent, 13:35 Neck: ROM/movement: is normal, is supple, without pain, no range of motions limitations, no meningismus, no nuchal rigidity, 13:35 Chest/axilla: Inspection: normal, 13:35 Cardiovascular: Rate: bradycardic, Rhythm: regular, Edema: is not appreciated, JVD: is not appreciated, 13:35 Respiratory: the patient does not display signs of respiratory distress, Respirations: cp normal, no use of accessory muscles, no retractions, labored breathing, is not present, Breath sounds: are clear throughout, no decreased breath sounds, no stridor, no wheezing, 13:35 Abdomen/GI: Inspection: abdomen appears normal, Palpation: abdomen is soft and non-tender, in all quadrants, 13:35 Neuro: Orientation: to person, place, situation, Mentation: able to follow commands, Cerebellar function: Romberg testing is negative, Motor: moves all fours, no focal deficits, Sensation: is normal, 14:03 ECG was reviewed by the Attending Physician. Vital Signs: 13:14 BP 154 / 75; Pulse 48; Resp 18; Temp 97.9; Pulse Ox 100% ; Weight 62.14 kg; Height 5 me1 ft. 9 in. ; 14:15 BP 132 / 77; Pulse 46; Resp 16; Pulse Ox 97% ; me1 15:00 BP 127 / 77; Pulse 43; Resp 16; Pulse Ox 97% ; me1 16:00 BP 124 / 99; Pulse 50; Resp 16; Pulse Ox 100% ; me1 17:00 BP 132 / 73; Pulse 45; Resp 15; Pulse Ox 98% ; me1 17:55 BP 134 / 76; Pulse 54; Resp 14; Pulse Ox 98% ; me1 13:14 Body Mass Index 20.23 (62.14 kg, 175.26 cm) me1 NIH Stroke Scale Scores: 13:38 NIHSS Score: 0 cp MDM: 13:14 Medical Screening Exam initiated cp 14:00 Differential diagnosis: cardiac arrhythmia, CVA, generalized weakness, GI bleed, head cp injury, hypovolemia, idiopathic dizziness, sepsis, vertigo. 16:30 Data reviewed: vital signs, nurses notes, lab test result(s), EKG, radiologic studies, cp CT scan, MRI. 16:30 I considered the following discharge prescriptions or medication management in the emergency department Medications were administered in the Emergency Department. See MAR. Independent interpretation of the following test(s) in the Emergency Department EKG: See my EKG interpretation above. ED course: minimal improvement after administration of meclizine. Discussed concern for continued unsteady gait and bradycardia. Discussed symptoms and exam with pcp, DR Jones, who reports he is not available and his patient's are to be admitted to services of hospitalist. 18:35 ED course: After initial agreement by hospitalist to admit, Regi Lau PROJECT ASST, review of records show patient was admitted in past for similar symptoms and discharged to f/u with cardiology for evaluation of pacemaker. Patient has not scheduled f/u at this time, so hospitalist recommends discharge to home, use of walker to ambulate and outpatient f/u. 04/04 13:27 Order name: Basic Metabolic Panel; Complete Time: 14:49 04/04 14:49 Interpretation: Normal except: GLUC 112; GFR 71. 04/04 13:27 Order name: CBC with Diff; Complete Time: 14:30 04/04 14:30 Interpretation: Normal except: RBC 4.04; HGB 12.4; HCT 36.6. 04/04 13:27 Order name: LFT's; Complete Time: 14:49 04/04 14:49 Interpretation: Normal except: ALB 3.2; GLOB 3.6; A/G 0.9. 04/04 13:27 Order name: Magnesium; Complete Time: 14:49 04/04 13:27 Order name: PT-INR; Complete Time: 14:35 04/04 13:27 Order name: Troponin HS; Complete Time: 14:49 04/04 13:37 Order name: Urinalysis W/Microscopic; Complete Time: 14:35 04/04 14:36 Interpretation: Reviewed. 04/04 13:27 Order name: XRAY Chest (1 view); Complete Time: 14:30 04/04 14:31 Interpretation: Report review. cp 04/04 13:27 Order name: CT Head Brain wo Cont; Complete Time: 14:35 cp 04/04 14:36 Interpretation: Report reviewed. cp 04/04 13:42 Order name: MRI - Brain Wo Cont; Complete Time: 16:10 cp 04/04 16:11 Interpretation: Report reviewed. cp 04/04 17:05 Order name: Echo with Doppler EDMS 04/04 17:06 Order name: ERT ORTHOSTATIC V/S EDMS 04/04 13:27 Order name: Cardiac monitoring; Complete Time: 14:16 cp 04/04 13:27 Order name: EKG - Nurse/Tech; Complete Time: 14:03 cp 04/04 13:27 Order name: IV Saline Lock; Complete Time: 14:15 cp 04/04 13:27 Order name: Labs collected and sent; Complete Time: 14:16 cp 04/04 13:27 Order name: O2 Per Protocol; Complete Time: 14:16 04/04 13:27 Order name: O2 Sat Monitoring; Complete Time: 14:16 cp 04/04 13:28 Order name: Orthostatic Blood Pressure; Complete Time: 18:40 04/04 14:59 Order name: Misc. Order: ambulate patient; Complete Time: 15:42 04/04 14:59 Order name: VS Recheck; Complete Time: 15:06 cp EC:03 Rate is 43 beats/min. Rhythm is regular. AK interval is normal. QRS interval is normal. cp QT interval is normal. T waves are Inverted in lead aVR. Interpreted by me. Reviewed by me. Administered Medications: 14:23 Drug: Ondansetron IVP 4 mg IVP once; over 2 minutes Route: IVP; Site: right antecubital;me1 15:07 Follow up: Response: No adverse reaction; Nausea is decreased me1 14:23 Drug: NS 0.9% IV 500 ml 500 ml IV at 1 bolus once; to be given as a bolus over 30 me1 minutes Volume: 500 ml; Route: IV; Rate: 1 bolus; Site: left antecubital; 18:50 Follow up: Response: No adverse reaction; IV Status: Completed infusion; IV Intake: me1 500ml 14:24 Drug: Meclizine PO 25 mg PO once Route: PO; me1 15:07 Follow up: Response: No adverse reaction me1 Disposition: 04/05 17:18 Chart complete. cp Disposition Summary: 04/04/24 18:35 Discharge Ordered Notes: Location: Home(04/04/24 18:35) cp Problem: an ongoing problem(04/04/24 18:35) cp Symptoms: have improved(04/04/24 18:35) cp Condition: Stable(04/04/24 18:35) cp Diagnosis - Bradycardia, unspecified(04/04/24 18:35) cp - Dizziness and giddiness(04/04/24 18:35) cp - Syncope Near(04/04/24 18:35) cp Followup: cp - With: Trae Anderson MD - When: 5 - 6 days - Reason: Recheck today's complaints Discharge Instructions: - Discharge Summary Sheet cp - Bradycardia, Adult cp - Dizziness cp - Near-Syncope cp - Vertigo cp - How to Use a Walker cp Forms: - Medication Reconciliation Form cp - Antibiotic Education cp - Prescription Opioid Use cp - Patient Portal Instructions cp - Leadership Thank You Letter cp Prescriptions: - WALKER - use 1 unit NOT APPLICABLE route daily please dispense 1 walker for home use; 1 cp unit; Refills: 0, Product Selection Permitted NIH Stroke Scale - NIH Stroke Score Date: 04/04/2024 Time: 13:38 Total Score = 0 10. Dysarthria (speech clarity - read or repeat words) - 0(Normal) 11. Extinction and Inattention (visual/tactile/auditory/spatial/personal) - 0(No abnormality) 1a. Level of Consciousness (LOC) - 0(Alert) 1b. Level of Consciousness (LOC) (Month \T\ Age) - 0(Both) 1c. LOC Commands (Open \T\ Closes Eyes/Carbon Brushes Assembler) - 0(Both) 2. Best Gaze (Lateral Gaze Paresis) - 0(Normal) 3. Visual Field Loss - 0(No visual loss) 4. Facial Palsy - 0(Normal) 5a. Left Arm: Motor (10-second hold) - 0(No drift) 5b. Right Arm: Motor (10-second hold) - 0(No drift) 6a. Left Leg: Motor (5-second hold - always test supine) - 0(No drift) 6b. Right Leg: Motor (5-second hold - always test supine) - 0(No drift) 7. Limb Ataxia (finger/nose \T\ heel/mann - test with eyes open) - 0(Absent) 8. Sensory Loss (pinprick arms/legs/face) - 0(Normal) 9. Best Language: Aphasia (description/naming/reading) - 0(No aphasia) Initials: cp Signatures: Dispatcher [employer] EDMS Johnson Muñiz PA PA cp Domitila Grewal, RN RN me1 Corrections: (The following items were deleted from the chart) 04/04 13:28 13:28 BASIC METABOLIC PANEL+C.LAB.BRZ ordered. EDMS EDMS 13:28 13:28 CBC+H.LAB.BRZ ordered. EDMS EDMS 13:28 13:28 HEPATIC FUNCTION+C.LAB.BRZ ordered. EDMS EDMS 13:28 13:28 MAGNESIUM+C.LAB.BRZ ordered. EDMS EDMS 13:28 13:28 PROTIME (+INR)+COAG.LAB.BRZ ordered. EDMS EDMS 13:28 13:28 Troponin High Sensitivity+C.LAB.BRZ ordered. EDMS EDMS 13:28 13:28 Head Brain Wo Cont+CT.RAD.BRZ ordered. EDMS EDMS 14:16 13:37 Urinalysis W/Microscopic+U.LAB.BRZ ordered. EDMS EDMS 16:43 16:42 Other abnormalities of gait and mobility cp cp 18:33 16:42 Inpatient Admission cp cp 18:33 16:42 DaltonVincent shelton-Ran cp cp 18:33 16:42 Telemetry/MedSurg (Inpatient) cp cp 18:33 16:42 Stable cp cp 18:33 16:42 new cp cp 18:33 16:42 have improved cp cp 18:33 16:42 Standard cp cp 18:33 16:42 cp cp 18:33 16:42 Syncope Near cp cp 18:33 16:42 Bradycardia, unspecified cp cp 18:33 16:42 Dizziness and giddiness cp cp 04/05 17:11 04/04 13:30 Patient's baseline: Neuro: alert and fully oriented, Motor: no cp deficits, Ambulation: walks without assistance, Speech: normal, cp
--- NOTE | 2024-04-04 17:56 | P.CNS ---
Date of Consult: 04/04/24 Reason for Consult: dizziness, near syncope admission Requesting Physician: Johnson Muñiz Primary Care Provider: Dr. Jones Chief Complaint: dizziness, balance issues History of Present Illness: Mr. Bourne an 78-year-old gentleman with a past medical history of aphasia, frontotemporal dementia, and bradycardia. He was seen in the emergency department for dizziness and balance disturbance. CT of the brain and MRI brain showed no acute findings. When asked what new symptoms the patient was having, he and his daughter state there have been no major changes, he just had a bit more dizziness and is having more balance issues. Daughter states this is unchanged since 5 years ago. The patient sees a neurologist in [facility] and takes meclizine. Mr. Bourne is noted to be bradycardic in the emergency department in the 40s. On record review he was admitted 1 year ago for similar signs and symptoms and it was recommended by cardiology that he get an outpatient stress test, echo, and be evaluated for pacemaker placement. The family states that he started that workup but would not keep on the Holter monitor so they just did not do any more evaluation. It is felt the patient has sick sinus syndrome and should continue evaluation for pacemaker placement. Echo, stress test, and pacemaker placement cannot be accomplished at this hospital at this time. As the symptoms have not changed in greater than 5 years, the findings on imaging today are unchanged, and the patient is at his baseline, we will decline admission and recommend patient follow-up with his PCP, neurologist, and cardiology. Home medications list reviewed: Yes - Past Medical/Surgical History Diabetic: No -: Dyslipidemia -: Frontotemporal dementia -: Aphasia -: Bradycardia -: back sx Psychosocial/ Personal History: Lives at home with his daughter. - Social History Smoking Status: Unknown if ever smoked Alcohol use: No CD- Drugs: No Place of Residence: Home <Regi Lau - Last Filed: 04/05/24 06:34> <KIANA Dalton - Last Filed: 04/06/24 12:42> Allergies No Known Allergies Allergy (Unverified 08/19/22 17:00) Review of Systems 10-point ROS is otherwise unremarkable General: As per HPI Eyes: Unremarkable ENT: Unremarkable Respiratory: Unremarkable Cardiovascular: As per HPI Gastrointestinal: Unremarkable Genitourinary: Unremarkable Musculoskeletal: Unremarkable Integumentary: Unremarkable Neurological: As per HPI Lymphatics: Unremarkable <Regi Lau - Last Filed: 04/05/24 06:34> Physical Examination General: Alert, In no apparent distress HEENT: Atraumatic, Normocephalic Neck: Supple Respiratory: Clear to auscultation bilaterally Cardiovascular: No edema, Regular rate/rhythm, Other (Bradycardia) Capillary refill: <2 Seconds Gastrointestinal: Soft and benign Musculoskeletal: No clubbing, No swelling Integumentary: No rashes Neurological: Normal tone, Sensation intact, Normal affect, Other (Patient changes positions quickly, has to be reminded to move slowly, has to be reminded to not pull off monitors, not attempted to jump out of the bed. He has a cane but carries it instead of using it. Recommended to family a walker may be more useful), Abnormal gait, Abnormal speech Lymphatics: No axilla or inguinal lymphadenopathy External genitalia: Deferred Rectal: Deferred Laboratory Data (last 24 hrs) 04/04/24 04/04/24 04/04/24 14:10 14:10 14:10 WBC 5.50 Hgb 12.4 L Hct 36.6 L Plt Count 177 PT 11.9 INR 1.06 Sodium 139 Potassium 4.1 BUN 18 Creatinine 1.06 Glucose 112 H Magnesium 2.1 Total Bilirubin 0.7 AST 19 ALT 18 Alkaline Phosphatase 68 <Teresa Lauy Grey - Last Filed: 04/05/24 06:34> Temp Pulse Resp BP Pulse Ox 97.9 F 54 14 134/76 04/04/24 13:14 04/04/24 17:55 04/04/24 17:55 04/04/24 17:55 <KIANA Dalton - Last Filed: 04/06/24 12:42> Conclusions/Impression: Frontotemporal dementia with probable sick sinus syndrome. Patient will need to follow-up with his PCP, neurologist, and cardiology. His family was reminded of fall precautions, follow-up, and need for more assistive devices. Critical Care: No <Regi Laulen - Last Filed: 04/05/24 06:34> Conclusions/Impression: Chronic symptomatic severe sinus bradycardia, no significant clinical change management manager the past few years, patient is lost to follow-up with his induction heating equipment setter needs to go back to his induction heating equipment setter clinic to complete study for evaluation of permanent pacemaker. He is not on any AV kevin or anticholinergics or any other medications that cause sinus bradycardia <KIANA Dalton - Last Filed: 04/06/24 12:42>
[2024-04-04 19:10] VITALS: TEMP 97.9
[2024-04-04 19:24] VITALS: O2SAT 98
[2024-04-04 19:25] VITALS: BP 134/76
--- NOTE | 2024-04-06 13:08 | EKG ---
Test Date: 2024-04-04 Test Time: 13:55:54 Dye Feeder: FINA MEASUREMENT RESULTS: Intervals: Rate: 43 WA: 108 QRSD: 80 QT: 446 QTc: 376 [place]: P: 44 WA: 108 QRS: 39 T: 65 INTERPRETIVE STATEMENTS: Marked sinus bradycardia with short WA Abnormal ECG Compared to ECG 08/19/2022 12:37:53 Short WA interval now present Electronically Signed On 04-06-24 13:04:41 BLOOD TESTER FOWL by Simone Casey
== END 2024-04-04 18:50 | disposition home or self-care (01) ==
LOC: ER 13:06
DX: R00.1 Bradycardia, unspecified (principal); R55 Syncope and collapse; E78.00 Pure hypercholesterolemia, unspecified; F03.90 Unspecified dementia, unspecified severity, without behavioral disturbance, psychotic disturbance, mood disturbance, and anxiety
CPT/HCPCS: 96361; 93005; 85025; 81001; 80048; 36415; 83735; 85610; 80076; 84484; 70450; 71045; 70551; 96374; 99285; J8597; J2405; J7040